=== PATIENT | male | born 1940 ===

== ENCOUNTER 2019-12-06 09:05 | Inpatient (IN) | payer MEDICARE, BC ==
--- OUTSIDE RECORDS SUMMARY | 2019-12-06 09:18 | XMS REPORT | Summary of Care ---
:1940 Author Organization [facility] Address [address] [address] Care Team Providers Name Role Phone KirstensaranyaRex Unavailable Justen Lawton OD Unavailable Diana Guzman Primary Care Provider Reason for Visit Reason Comments Follow Up Coronary Artery Disease Encounter Details Date Type Department Care Team Description 11/17/2019 Office Visit [facility] Juan Carnes, Coronary artery disease involving muck[place]oot coronary artery of [place] heart without angina pectoris (Primary Dx); 1 Jana Keith MD Aortic valve stenosis, etiology of cardiac valve disease unspecified; [place] [id number] 1 JANA KEITH Essential hypertension; [phone] [place] [address] TIA (transient ischemic attack); [phone] Dyslipidemia; S/P CABG (coronary artery bypass graft) Allergies Active Allergy Reactions Severity Noted Date Comments Xanax Other 07/26/2010 Caused hallucination, disoriented, and anxious Kdc:Sodium Unknown Reaction 12/16/2014 Benzoate+Cefuroxime+Aspa rtame Codeine Dermatologic Reaction 05/07/2018 Tetracycline Rash 02/21/2009 documented as of this encounter (statuses as of 11/17/2019) Medications Medication Sig Dispensed Refills Start Date End Date Status acetaminophen (TYLENOL) Take 1-2 Tabs by 0 06/26/2010 Active 500 MG Oral Tab mouth EVERY FOUR HOURS NEEDED. Fluticasone Take by 0 Active Furoate-Vilanterol (BREO inhalation. ELLIPTA) 200-25 MCG/INH Inhalation AEROSOL POWDER, BREATH ACTIVATED albuterol-ipratropium 3 mg by 0 Active (DUO-NEB) 0.5-2.5 (3) Inhalation-SVN MG/3ML Inhalation route EVERY FOUR Solution HOURS NEEDED. Tamsulosin HCl (FLOMAX) Take 0.4 mg by 0 Active 0.4 MG Oral Cap mouth DAILY. Ascorbic Acid (VITAMIN Take 1 Tab by 180 Tab 0 03/11/2018 Active C) 100 MG Oral Chew Tab mouth NEEDED (with iron pill). atorvastatin (LIPITOR) Take 1 Tab by 90 Tab 3 05/05/2019 Active 80 MG Oral mouth DAILY. TabIndications: History of coronary artery bypass graft x 3, History of stroke, Hyperlipidemia, unspecified hyperlipidemia type Mirabegron ER Take by mouth. 0 Active (MYRBETRIQ) 50 MG Oral TABLET SR 24 HR ROPINIROLE HYDROCHLORIDE Take 1 Tab by 90 Tab 1 06/12/2019 Active 3 MG Oral mouth EVERY TabIndications: RLS BEDTIME. (restless legs syndrome) Clopidogrel Bisulfate Take by mouth. 0 Active (PLAVIX PO) diclofenac (VOLTAREN) 1 2 g by Topical 1 Tube 3 06/12/2019 Active % Transdermal route THREE GelIndications: TIMES DAILY Localized osteoarthritis NEEDED (hand of both hands joint pains). allopurinol (ZYLOPRIM) TAKE 1 TABLET BY 90 Tab 0 07/20/2019 Active 100 MG Oral MOUTH ONCE DAILY TabIndications: Gout, unspecified cause, unspecified chronicity, unspecified site allopurinol (ZYLOPRIM) Take 1 Tab by 90 Tab 1 08/05/2019 Active 100 MG Oral mouth DAILY. TabIndications: Gout, unspecified cause, unspecified chronicity, unspecified site rivastigmine transdermal APPLY 1 PATCH TO 90 Patch 0 08/24/2019 Active patch-daily (EXELON) 4.6 SKIN ONCE DAILY. MG/24HR Transdermal PATCH 24 HRIndications: Dementia without behavioral disturbance, unspecified dementia type (HCC) pantoprazole (PROTONIX) Take 1 Tab by 90 Tab 0 10/05/2019 Active 40 MG Oral Tab EC mouth DAILY. amLODIPine Take 1 Tab by 90 Cap 1 10/22/2019 Active Besy-Benazepril HCl mouth DAILY. 10-20 MG Oral CapIndications: Hypertension, unspecified type documented as of this encounter (statuses as of 11/17/2019) Active Problems Problem Noted Date TIA (transient ischemic attack) 02/29/2016 Transient weakness of left lower extremity 02/29/2016 Hypertension 03/02/2015 Keratitis, right 03/02/2015 Central retinal artery occlusion, right eye 03/01/2015 H/O: gout 03/01/2015 S/P CABG (coronary artery bypass graft) 03/01/2015 MELANIE (obstructive sleep apnea) 02/01/2015 PLMD (periodic limb movement disorder) 02/01/2015 Cough 10/02/2011 Dyslipidemia 06/06/2011 Overview: Lab Results Lab Results Value Date/Time CHOL 144 02/06/2010 0745 TRIG 119 02/06/2010 0745 HDL 42 02/06/2010 0745 LDL 78 02/06/2010 0745 LDLHDLRATIO 1.9 02/06/2010 0745 CHOLHDLRATIO 3.4 02/06/2010 0745 Hiatal hernia 01/13/2010 Gastric erosions 01/13/2010 GERD (gastroesophageal reflux disease) 01/13/2010 CAD (coronary artery disease), [place] coronary artery 01/11/2010 Aortic Stenosis s/p AVR 200912/27/2009 Overview: 01/03/07 echocardiogram: FINAL IMPRESSION: Mild to moderate calcific aortic stenosis, KHADIJAH 1.3-1.6cm sq, PG 37mm of hg, MG 21mm of hg Trivail to mild aortic insufficiency Normal biventricular systolic function Mild left atrial enlargement Mitral annular calcification, trivial regurgitation Estimated pulmonary artery pressure 32mm of hg Normal pericardium Sensory hearing loss, bilateral 07/19/2009 Dysphagia 03/05/2006 Diaphragmatic hernia without mention of obstruction or gangrene 03/05/2006 Congenital tracheoesophageal fistula, esophageal atresia and stenosis 2005 Calcium deposits in tendon and bursa 05/31/2005 documented as of this encounter (statuses as of 11/17/2019) Resolved Problems Problem Noted Date Resolved Date Chest pain 12/27/2009 11/17/2019 Overview: 08/14/01 stress echocardiogram: IMPRESSION: Despite marked electrical positivity there were no wall motionabnormalities noted and there was a significant hypertensive response seen.Therefore, the test was negative by wall motion criteria. Non-healing surgical wound 07/25/2005 12/27/2009 Other general symptoms(780.99) 06/25/2005 12/27/2009 Pain in joint, upper arm 05/31/2005 12/27/2009 documented as of this encounter (statuses as of 11/17/2019) Immunizations Name Administration Dates Next Due Influenza Vaccine 65 Yrs + 07/20/2019 Influenza Vaccine High Dose 06/21/2017 documented as of this encounter Social History Tobacco Use Types Packs/Day Years Used Date Former Smoker Cigarettes 15 Quit: 10/21/1979 Smokeless Tobacco: Never Used Alcohol Use Drinks/Week oz/Week Comments No occ Sex Assigned at Date Recorded Not on file Job Start Date Occupation Industry Not on file Not on file Not on file Travel History Travel Start Travel End No recent travel history available. documented as of this encounter Last Filed Vital Signs Vital Sign Reading Time Taken Comments Blood Pressure 142/82 11/17/2019 10:28 AM EST Pulse 58 11/17/2019 10:28 AM EST Temperature - - Respiratory Rate - - Oxygen Saturation 95% 11/17/2019 10:28 AM EST Inhaled Oxygen Concentration - - Weight 94.8 kg (209 lb) 11/17/2019 10:28 AM EST Height 170.2 cm (5' 7") 11/17/2019 10:28 AM EST Body Mass Index 32.73 11/17/2019 10:28 AM EST documented in this encounter Progress Notes Juan Carnes MD - 11/17/2019 10:40 AM EST Alistair Holcomb [id number] 1940 DATE OF SERVICE: 11/17/2019 CHIEF COMPLAINT: follow up HPI: Alistair Holcomb is a 79-y.o. male with the following relevant PMH. #1 CAD status post CABG ESQUIVEL to LAD, SVG to diagonal and PDA by Dr. 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 Ophthalmology was consulted, who diagnosed a central retinal artery occlusion of the right eye, who advised eye drops. Neurology is consulted who advised CT angiography, which showed carotid stenosis. Vascular surgery was consulted who advised to continue Plavix, Asa and statin, out-pt follow-up. Cardiology is consulted, who advised out-pt follow-up. No afib was detected during hospitalization. Agreed that blindness was likely due to embolic carotid plaque" Today he is here for routine follow-up. No symptoms. He has been lifting weights in the gym. Denies any chest pain or significant shortness of breath on exertion. TTE done today showed no evidence of prosthetic valve stenosis. Normal LV function. Compliant with medications. REVIEW OF SYSTEMS: Constitutional: No fever, chills, weight loss Cardiovascular: No chest pain, SOB, palpitations, orthopnea, PND, claudication, leg swelling. Respiratory: No cough, hemoptysis. Gastrointestinal: No nausea, vomiting, abdominal pain, diarrhea, blood in stool , melena. Neurological: No dizziness, presyncope, syncope, speech difficulty. Patient Active Problem List Diagnosis Date Noted Central retinal artery occlusion, right eye 03/01/2015 Priority: High S/P CABG (coronary artery bypass graft) 03/01/2015 Priority: Medium MELANIE (obstructive sleep apnea) 02/01/2015 Priority: Medium Dyslipidemia 06/06/2011 Priority: Medium Lab Results Lab Results Value Date/Time CHOL 144 02/06/2010 0745 TRIG 119 02/06/2010 0745 HDL 42 02/06/2010 0745 LDL 78 02/06/2010 0745 LDLHDLRATIO 1.9 02/06/2010 0745 CHOLHDLRATIO 3.4 02/06/2010 0745 Aortic Stenosis s/p AVR 200912/27/2009 Priority: Medium 01/03/07 echocardiogram: FINAL IMPRESSION: Mild to moderate calcific aortic stenosis, KHADIJAH 1.3-1.6cm sq, PG 37mm of hg, MG 21mm of hg Trivail to mild aortic insufficiency Normal biventricular systolic function Mild left atrial enlargement Mitral annular calcification, trivial regurgitation Estimated pulmonary artery pressure 32mm of hg Normal pericardium H/O: gout 03/01/2015 Priority: Low PLMD (periodic limb movement disorder) 02/01/2015 Priority: Low GERD (gastroesophageal reflux disease) 01/13/2010 Priority: Low Sensory hearing loss, bilateral 07/19/2009 Priority: Low TIA (transient ischemic attack) 02/29/2016 Transient weakness of left lower extremity 02/29/2016 Hypertension 03/02/2015 Keratitis, right 03/02/2015 Cough 10/02/2011 Hiatal hernia 01/13/2010 Gastric erosions 01/13/2010 CAD (coronary artery disease), [place] coronary artery 01/11/2010 Chest pain 12/27/2009 08/14/01 stress echocardiogram: IMPRESSION: Despite marked electrical positivity there were no wall motionabnormalities noted and there was a significant hypertensive response seen.Therefore, the test was negative by wall motion criteria. Dysphagia 03/05/2006 Diaphragmatic hernia without mention of obstruction or gangrene 2005 Congenital tracheoesophageal fistula, esophageal atresia and stenosis Calcium deposits in tendon and bursa 05/31/2005 Past Surgical History: Procedure Laterality Date BALO ANGIOP ICRA PRQ COLONOSCOPY N/A 08/27/2017 Procedure: COLONOSCOPY; Surgeon: Martin Novak Jr., MD; Location: [facility] GI OR COLONOSCOPY DIAGNOSTIC COMBINED RIGHT HEART CATH & RET 3.18.10 ECHO, TRANS ESOPHOGEAL 06/21/2010 Procedure:ECHO, TRANS ESOPHOGEAL; Surgeon:NAIMA DIMAS; Location:[facility] MAIN OR ; Laterality:N/A; INTRA OP EGD (CORDOVA / NON CORDOVA) MI CABG, VEIN, SINGLE MI ESOPHAGOSCOPY FLEXIBLE TRANSORAL WITH BIOPSY MI TYMPANOPLASTY 2002 right tympanoplasty RETINA SURGERY Current Outpatient Medications Medication Sig acetaminophen (TYLENOL) 500 MG Oral Tab Take 1-2 Tabs by mouth EVERY FOUR HOURS NEEDED. albuterol-ipratropium (DUO-NEB) 0.5-2.5 (3) MG/3ML Inhalation Solution 3 mg by Inhalation-SVNroute EVERY FOUR HOURS NEEDED. allopurinol (ZYLOPRIM) 100 MG Oral Tab TAKE 1 TABLET BY MOUTH ONCE DAILY allopurinol (ZYLOPRIM) 100 MG Oral Tab Take 1 Tab by mouth DAILY. amLODIPine Besy-Benazepril HCl 10-20 MG Oral Cap Take 1 Tab by mouth DAILY. Ascorbic Acid (VITAMIN C) 100 MG Oral Chew Tab Take 1 Tab by mouth NEEDED (with iron pill). atorvastatin (LIPITOR) 80 MG Oral Tab Take 1 Tab by mouth DAILY. Clopidogrel Bisulfate (PLAVIX PO) Take by mouth. diclofenac (VOLTAREN) 1 % Transdermal Gel 2 g by Topical route THREE TIMES DAILY NEEDED (hand joint pains). Fluticasone Furoate-Vilanterol (BREO ELLIPTA) 200-25 MCG/INH Inhalation AEROSOL POWDER, BREATH ACTIVATED Take by inhalation. Mirabegron ER (MYRBETRIQ) 50 MG Oral TABLET SR 24 HR Take by mouth. pantoprazole (PROTONIX) 40 MG Oral Tab EC Take 1 Tab by mouth DAILY. rivastigmine transdermal patch-daily (EXELON) 4.6 MG/24HR Transdermal PATCH 24 HR APPLY 1 PATCH TO SKIN ONCE DAILY. ROPINIROLE HYDROCHLORIDE 3 MG Oral Tab Take 1 Tab by mouth EVERY BEDTIME. Tamsulosin HCl (FLOMAX) 0.4 MG Oral Cap Take 0.4 mg by mouth DAILY. No current facility-administered medications for this visit. Facility-Administered Medications Ordered in Other Visits Medication perflutren lipid microsphere (DEFIN[employer]) injection 1.5 mL Allergies Allergen Reactions Alprazolam [Xanax] Other Caused hallucination, disoriented, and anxious Cefuroxime Axetil [Kdc:Sodium Benzoate+Cefuroxime+Aspartame] Unknown Reaction Codeine Dermatologic Reaction Tetracycline Rash Social History Tobacco Use Smoking status: Former Smoker Years: 15.00 Types: Cigarettes Last attempt to quit: 10/21/1979 Years since quittin.1 Smokeless tobacco: Never Used Substance Use Topics Alcohol use: No Comment: occ Drug use: No Family History Problem Relation Age of Onset Heart Failure Mother Hypertension Mother Heart Failure Father Hypertension Father Alzheimer's Disease Sister No Known Problems Brother No Known Problems Sister No Known Problems Brother No Known Problems Son No Known Problems Son No Known Problems Son No Known Problems Daughter No Known Problems Daughter Alcohol/Drug Brother PHYSICAL EXAM BP (!) 142/82 (BP Location: Right arm, Patient Position: Sitting) | Pulse 58 | Ht 5' 7" (1.702 m)| Wt 209 lb (94.8 kg) | SpO2 95% | BMI 32.73 kg/m Nursing note and vitals reviewed. Constitutional: Patient is comfortable and is oriented to time, place and person.No distress. Skin: Warm and dry Neck: No JVD. Heart:: Normal S1 and S2. There is no S3 or S4. No audible murmurs (>/= Grade 3/6 intensity). Nopericardial rub. Peripheral Pulses: Radial: 2+ and equal bilaterally. Carotid pulse: 2+, Brisk upstroke. No Bruit Posterior tibial : 2+ b/l Chest: Normal Effort. Normal Vesicular breath sounds bilaterally. No crepitations Abdominal: Soft, non tender, non distended. No organomegaly. No guarding/ rigidity Extremities: Warm, no pedal edema. Neurological: Upper extremity: Motor strength is intact Lower extremity: Motor strength is intact Psychiatric: Affect normal. LABS Hemoglobin Date Value Ref Range Status 06/12/2019 13.8 13.7 - 17.5 g/dL Final INR Date Value Ref Range Status 03/03/2015 1.01 0.79 - 1.15 INR Final Troponin Date Value Ref Range Status 02/28/2016 0.023 0.000 - 0.034 ng/mL Final Comment: Negative less than or equal to 0.034 ng/ml Indeterminate 0.0351 - 0.119 ng/ml (Suggest Repeat in 4 Hours) Critical (AMI Cutoff) greater than or equal to 0.120 ng/ml LDL Cholesterol Date Value Ref Range Status 12/19/2018 77 <100 MG/DL Final HDL Cholesterol Date Value Ref Range Status 12/19/2018 37 (L) >40 mg/dl Final Cholesterol Date Value Ref Range Status 12/19/2018 132 <200 mg/dl Final Sodium Date Value Ref Range Status 06/12/2019 139 134 - 145 mmol/L Final Potassium Date Value Ref Range Status 06/12/2019 4.8 3.5 - 5.1 mmol/L Final BUN Date Value Ref Range Status 06/12/2019 26 (H) 9 - 20 mg/dl Final Creatinine Date Value Ref Range Status 06/12/2019 1.0 0.8 - 1.5 mg/dl Final ALT Date Value Ref Range Status 06/12/2019 27 21 - 72 U/L Final EC11/17/2019 sinus bradycardia, incomplete RBBB, T wave inversions in lateral leads, HR 54 bpm, nosignificant changes as compared to prior ECG dated 02/2019 ASSESSMENT/PLAN I have personally reviewed the relevant available prior notes, labs and imaging reports. #1 CAD status post CABG ESQUIVEL to LAD, SVG to diagonal and PDA by Dr. 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 Doing well. Asymptomatic. No clinical signs of acute heart failure. Today's TTE shows no evidenceof prosthetic aortic valve stenosis. Normal LV function. Plan to continue aggressive risk factor modification therapy with Plavix and statins #3 Carotid Artery Disease #4 History of TIA and central retinal artery occlusion Reviewed CT neck angiography performed in 2014 that showed 60 to 70% stenosis of the proximal right ICA, left ICA 50% stenotic Last carotid Dopplers in 2016 showed no significant stenosis No symptoms of amaurosis fugax, syncope or TIA Continue with aggressive risk factor modification #5 Hypertension Mildly elevated. Goal systolic BP less than 130 We will continue with current antihypertensive management. Advised to keep a close watch on his BP. If persistently elevated, antihypertensive medications needs to be adjusted #6 Dyslipidemia Lipid profile 12/19/2018, LDL 77, non-HDL 95 We will repeat lipid profile next visit We will consider adding ezetimibe 10 mg next visit if LDL remains above 70 mg/dL Follow up in 1 year The total time spent on this appointment and coordination of care was 30mins. Out of this time >20 mins were spent in discussing about various medical issues as mentioned above, including treatment options. All questions were answered. Patient verbalized understanding. Juan Carnes MD,FACC,FACP Associate Worm Picker Clinical Waiter/Waitress Counter of Cardiology, [facility], [place] ATTENTION: This note was generated using [employer] voice recognition software. There may be spelling errors, changes in the words dictated, and words inserted into the note which may have been misinterpreted by the dictation system. These words should not be used to change the intended meaning of the dictation. The content, context, words or meaning may not be entirely accurate and require interpretation documented in this encounter Plan of Treatment Date Type Specialty Care Team Description 11/17/2019 Orders Only Cardiology Arrived 11/19/2019 Office Visit Family Practice Laila Lundy MD [address] [place] [address] [phone] 08/16/2020 Ocular Visit Optometry Justen Lawton, OD [address] [facility] [place] [address] [phone] 11/17/2020 Office Visit Cardiology Juan Carnes MD [address] [address] [phone] Name Type Priority Associated Diagnoses Order Schedule BRIA (ANKLE-BRACHIAL Procedures Routine Coronary artery disease Ordered: INDEX) SCREENING involving muck[place]oot coronary artery of [place] heart without angina pectoris Health Maintenance Due Date Last Done Comments DTaP/Tdap/Td Vaccines (1 - 1951 Tdap) ZOSTER IMMUNIZATION SERIES 1990 (1 of 2) PNEUMOCOCCAL 65+YRS (1 of 2 2005 - PCV13) MEDICARE ANNUAL WELLNESS 12/25/2018 12/25/2017 VISIT HIV SCREENING 12/20/2019 Postponed from 1955 (Patient refused) DEPRESSION SCREENING 06/12/2020 06/12/2019 FALL RISK ASSESSMENT 06/12/2020 06/12/2019, 06/12/2019 Colonoscopy 08/27/2022 08/27/2017, 08/27/2017, 08/13/2016, Additional history exists INFLUENZA VACCINE Completed 07/20/2019, 06/21/2017 HEPATITIS A IMMUNIZATION Aged Out No longer eligible SERIES based on patient's age to complete this topic HPV IMMUNIZATION SERIES Aged Out No longer eligible based on patient's age to complete this topic MENINGOCOCCAL VACCINE IMM Aged Out No longer eligible based on patient's age to complete this topic documented as of this encounter Goals Goal Patient Goal Associated Recent Patient-Stated? Author Type Problems Progress Blood Pressure Blood Pressure 142/82 No Richardson Contreras < 150/90 (11/17/2019 J, DO 10:28 AM EST) Note: This is an individualized treatment (blood pressure) goal for Alistair Jaun Aicha: Displayed above (on the left) is your goal for blood pressure control. Your most recent blood pressure is also shown above, on the right. You should try to achieve blood pressures that are lower than your goal listed above (on the left). Weight loss vs. 18 mo Lifestyle 16 (11/17/2019 10:28 AM EST) No Richardson Contreras J, DO max (lbs) >= 10 Note: This is an individualized lifestyle goal for Alistair A Aicha: Your body mass index (BMI) is more than 30. You should lose weight. A reasonable starting goal is to lose 10 pounds. Displayed above is how many pounds you have lost thus far towards your 10 pound weight loss goal. Take all prescribed medications as directed Self-management Richardson Silvestre DO Note: This is an individualized self-management goal for Alistair Holcomb: Please take all prescribed medications as directed. 1. Do not skip doses. If you cannot afford your medications, talk with your doctor. 2. Use a pill reminder system such as a pill box if needed. Your pharmacist can help you with this. 3. Contact your Pharmacy 5 days before your medication runs out. If you cannot take your medications for any reasons, talk with your doctor. 4. Please bring all of your medication bottles and inhalers (or a list of all your medications/inhalers) with you to every visit. Potential barriers to meeting all of your care plan goals will continue to be addressed on an ongoing basis. documented as of this encounter Implants Implanted Type Area Air Traffic Control Operator Device Shelf Model / Identifier Expiration Date Serial / Lot Aortic Magna Ramone 25mm - [id number] Aorta [employer] [id number] / Implanted: Qty: 1 on 06/21/2010 at [facility] SCIENCES / [id number] documented as of this encounter Results Not on filedocumented in this encounter Visit Diagnoses Diagnosis Aortic valve stenosis, etiology of cardiac valve disease unspecified Coronary artery disease involving muck[place] coronary artery of [place] heart without angina pectoris Essential hypertension Unspecified essential hypertension TIA (transient ischemic attack) Unspecified transient cerebral ischemia Dyslipidemia Other and unspecified hyperlipidemia S/P CABG (coronary artery bypass graft) Postsurgical aortocoronary bypass status documented in this encounter Guarantor Name Account Type Relation to Date of Phone Billing Address Patient Alistair Holcomb Personal/Fami 1940 [id number] [place] [address] 0 (Work) documented as of this encounter Advance Directives Code Status Date Activated Date Inactivated Comments Full Code 02/29/2016 2:51 AM 03/01/2016 6:39 PM Does patient have decision making capacity? yes Order discussed with: Patient I discussed all options and patient/surrogate requested and agreed to: Full Code Full Code 03/01/2015 11:53 PM 03/04/2015 7:45 PM Does patient have decision making capacity? yes Order discussed with: Patient I discussed all options and patient/surrogate requested and agreed to: Other (full)
--- OUTSIDE RECORDS SUMMARY | 2019-12-06 09:18 | XMS REPORT | Summary of Care ---
:1940 Author Organization [facility] Address [address] [address] Care Team Providers Name Role Phone Isidra Guallpa Unavailable Justen Lawton OD Unavailable Diana Guzman Primary Care Provider Reason for Referral Diagnostic Testing (Routine) Status Reason Specialty Diagnoses / Referred By Referred To Contact Procedures Contact Closed Cardiology Diagnoses Aortic valve stenosis, etiology of cardiac valve disease unspecified Isidra Guallpa [facility] Cardiovascular Procedures ECHOCARDIOGRAM TTE CHAIR Diagnostic [address] [address] [address] [address] Phone: Reason for Visit Diagnostic Testing (Routine) Status Reason Specialty Diagnoses / Referred By Referred To Contact Procedures Contact Closed Cardiology Diagnoses Aortic valve stenosis, etiology of cardiac valve disease unspecified Isidra Guallpa [facility] Cardiovascular Procedures ECHOCARDIOGRAM TTE CHAIR Diagnostic [address] [address] [address] [address] Phone: Encounter Details Date Type Department Care Team Description 11/17/2019 Hospital Encounter [facility] CARDIOVASCULAR DIAGNOSTIC Outpatient [address] [address] Allergies Active Allergy Reactions Severity Noted Date Comments Xanax Other 07/26/2010 Caused hallucination, disoriented, and anxious Kdc:Sodium Unknown Reaction 12/16/2014 Benzoate+Cefuroxime+Aspa rtame Codeine Dermatologic Reaction 05/07/2018 Tetracycline Rash 02/21/2009 documented as of this encounter (statuses as of 11/19/2019) Medications Medication Sig Dispensed Refills Start Date End Date Status acetaminophen Take 1-2 0 06/26/2010 Active (TYLENOL) 500 MG Tabs by Oral Tab mouth EVERY FOUR HOURS NEEDED. Fluticasone Take by 0 Active Furoate-Vilanterol inhalation. (BREO ELLIPTA) 200-25 MCG/INH Inhalation AEROSOL POWDER, BREATH ACTIVATED albuterol-ipratropi 3 mg by 0 Active um (DUO-NEB) Inhalation-S 0.5-2.5 (3) MG/3ML VN route Inhalation Solution EVERY FOUR HOURS NEEDED. Tamsulosin HCl Take 0.4 mg 0 Active (FLOMAX) 0.4 MG by mouth Oral Cap DAILY. Ascorbic Acid Take 1 Tab 180 Tab 0 03/11/2018 Active (VITAMIN C) 100 MG by mouth Oral Chew Tab NEEDED (with iron pill). atorvastatin Take 1 Tab 90 Tab 3 05/05/2019 Active (LIPITOR) 80 MG by mouth Oral DAILY. TabIndications: History of coronary artery bypass graft x 3, History of stroke, Hyperlipidemia, unspecified hyperlipidemia type Mirabegron ER Take by 0 Active (MYRBETRIQ) 50 MG mouth. Oral TABLET SR 24 HR ROPINIROLE Take 1 Tab 90 Tab 1 06/12/2019 Active HYDROCHLORIDE 3 MG by mouth Oral EVERY TabIndications: RLS BEDTIME. (restless legs syndrome) Clopidogrel Take by 0 Active Bisulfate (PLAVIX mouth. 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 allopurinol Take 1 Tab 90 Tab 1 08/05/2019 Active (ZYLOPRIM) 100 MG by mouth Oral DAILY. TabIndications: Gout, unspecified cause, unspecified chronicity, unspecified site rivastigmine APPLY 1 90 Patch 0 08/24/2019 Active transdermal PATCH TO patch-daily SKIN ONCE (EXELON) 4.6 DAILY. MG/24HR Transdermal PATCH 24 HRIndications: Dementia without behavioral disturbance, unspecified dementia type (HCC) amLODIPine Take 1 Tab 90 Cap 1 10/22/2019 Active Besy-Benazepril HCl by mouth 10-20 MG Oral DAILY. CapIndications: Hypertension, unspecified type allopurinol TAKE 1 90 Tab 0 07/20/2019 Discontinued (ZYLOPRIM) 100 MG TABLET BY 0 (Reorder) Oral MOUTH ONCE TabIndications: DAILY Gout, unspecified cause, unspecified chronicity, unspecified site pantoprazole Take 1 Tab 90 Tab 0 10/05/2019 Discontinued (PROTONIX) 40 MG by mouth 0 (Reorder) Oral Tab EC DAILY. documented as of this encounter (statuses as of 11/19/2019) Active Problems Problem Noted Date TIA (transient [...] reflux disease) 01/13/2010 CAD (coronary artery disease), [place] coronary artery 01/11/2010 Aortic Stenosis s/p AVR [...] as of this encounter (statuses as of 11/19/2019) Resolved Problems Problem Noted Date Resolved Date [...] as of this encounter (statuses as of 11/19/2019) Immunizations Name Administration Dates Next Due Influenza [...] of this encounter Last Filed Vital Signs Not on filedocumented in this encounter Plan of Treatment Date Type Specialty Care Team Description 12/08/2019 Office Visit Family Practice Laila Lundy MD [address] [place] [address] [phone] 08/16/2020 Ocular Visit Optometry Justen Lawton, OD [address] [address] 11/17/2020 Office Visit Cardiology Juan Carnes MD [address] [address] Health Maintenance Due Date Last Done Comments [...] 142/82 No Richardson Contreras < 150/90 (11/17/2019 DO Kristyn 10:28 AM EST) Note: This is an individualized treatment (blood pressure) goal for Alistair Holcomb: Displayed above (on the left) is your goal for blood pressure control. Your most recent blood pressure is also shown above, on the right. You should try to achieve blood pressures that are lower than your goal listed above (on the left). Weight loss vs. 18 mo Lifestyle 16 (11/17/2019 10:28 AM EST) Richardson Silvestre DO max (lbs) >= 10 Note: This is an individualized lifestyle goal for Alistair Holcomb: Your body mass index (BMI) is more [...] of this encounter Implants Implanted Type Area Planning Coordinator Device Shelf Model / Identifier Expiration Date Serial / Lot Aortic Magna Ramone 25mm - [id number] Aorta RAMIREZ LIFE [id number] / Implanted: Qty: 1 on 06/21/2010 at [facility] [employer] / [id number] documented as of this encounter Procedures Procedure Name Priority Date/Time Associated Diagnosis Comments ECHOCARDIOGRAM TTE Routine 11/17/2019 9:17 AM Aortic valve Results for this EST stenosis, etiology procedure are in of cardiac valve the results disease unspecified section. documented in this encounter Results ECHOCARDIOGRAM TTE (11/17/2019 9:17 AM EST) ECHOCARDIOGRAM TTE ECHOCARDIOGRAPHY REPORT CARDIOLOGY DEPARTMENT Patient Name: TOMÁS Zamorano Status: Outpatient MR Number: [id number] Gender: Male : 1940 Location: [place] Age:79 year(s) Exam Date: 11/17/2019 09:17 AM Height: 68 inches Weight: 224 pounds Study Performed: 2D echocardiogram, M-Mode, Doppler , Color Doppler, Contrast study, ECHOCARDIOGRAM TTE. Ordering ISIDRA GUALLPA Provider: KAYA BRUNSON Provider: SANDIP KIRKPATRICK Manager Data Warehousing: Trish Limon [facility] Room Number Interpreting Yayo Physician Jacky GUTIERREZ BSA: 2.14 m^2 Interpreting BMI: 34.06 kg/m^2 Fellow Nurse CHICO WATTERS RN, CCRN Technical Quality: Adequate visualization Contrast Medium: Definity. Amount - 1.5 ml Heart Rate (HR): 62bpm Blood Pressure (BP): 120/60mmHg INDICATION FOR STUDY: Aortic valve replacement, S/P CABG, Hypertension and Hyperlipidemia. HISTORY: 1.5cc's of Definity administered via IV with no waste on 11/17/2019 at 09:45 am (Lot # [id number] ) ([facility] # [id number]). AVR & CABG 11 yrs ago FINAL IMPRESSION: Mild-moderate LVH with Grade II diastolic dysfunction and mild left atrial enlargement. High normal LV systolic function with no regional wall motion abnormalities; estimated LVEF 65-70%. Mild right heart enlargement with normal RV contractility. Normally functioning bioprosthetic aortic valve, as described. Mild-moderate tricuspid regurgitation. Mild elevation in estimated pulmonary arterial systolic pressure (44 mmHg). No pericardial effusion. Compared to prior echo report 02/29/2016, tricuspid regurgitation is slightly worse, diastolic dysfunction is reported, and estimated PASP is mildly elevated. OBSERVATIONS & FINDINGS: Using 2d (3d if applicable), M-mode, Colorflow, Continuous wave doppler and Pulse wave doppler interrogation Left Ventricle Left ventricular cavity size is normal. Left ventricular wall thickness is moderately increased. No evidence of LVOT obstruction. Definity imaging enhancer was used because at least two contiguous endocardial borders were not well defined. Global systolic function is high normal, with an estimated LVEF of 65-70%. No regional wall motion abnormalities. Diastolic doppler profile is consistent with impaired LV relaxation and elevated LA pressure (moderate grade II diastolic dysfunction). Average E/e' 25. Left Atrium The left atrium is mildly enlarged. Indexed LA volume is 36 ml/m2. Mitral Valve Mitral valve leaflets are mildly thickened and calcified with normal mobility. There is moderate to severe posterior mitral annular calcification. The peak and mean transmitral gradients are 8 mmHg and 4mmHg, respectively, at a heart rate of 56 bpm. There is no significant mitral stenosis. There is mild mitral regurgitation. Aortic Valve A #25 Ramone-Ramirez Magna bioprosthetic valve is noted in the aortic position. The prosthesis is well seated, with no rocking motion and no dehiscence. Prosthetic leaflets are not well visualized. The mean and peak gradients across the aortic valve are 11 mmHg and 21 mmHg, respectively. The effective orifice area by continuity equation is 2.9cm2. The acceleration time is 70msec. There is trivial aortic regurgitation. Right Ventricle The right ventricle is mildly enlarged with reduced contractility. Right Atrium The right atrium is mildly enlarged. Tricuspid Valve Tricuspid valve appears structurally normal with flexible leaflets. There is mild-moderate tricuspid regurgitation. The estimated pulmonary artery systolic pressure is mildly elevated at 44 mmHg. Pulmonic Valve Pulmonic valve is not well visualized but appears flexible with normal Doppler. Pericardium / Pleura No pericardial effusion. Miscellaneous Visualized portions of the aorta are within normal limits. Measurements & Calculations: M-Mode / 2D Measurements Value Normal Value Normal LVIDd: 4.9 cm 3.5-5.5 AO Root: 2.5 cm 2.0-3.7 0.7-1.1 LA Dimension: cm 1.9-4.0 IVSd: 1.46 cm 0.7-1.1 LVOT: 2.3 cm 1.5-2.5 LVPWD: 1.4 cm 50-70% RV Diastolic Dimension: 4.1 cm EF Estimated: 65 % Doppler Measurements & Calculations: Mitral: Aortic: Area (PHT): 2.24 cm^2 LVOT VTI: 37.7 cm Peak E-Wave: 138 cm/s Peak Velocity: 230 cm/s Peak A-Wave: 133 cm/s Peak Gradient: 21.16 mmHg Peak Gradient: 7.62 mmHg Acceleration Time: 70 msec P1/2t: 98 msec Area (continuity): 2.92 cm^2 Area (continuity): 2.52 cm^2 Mean Velocity: 150 cm/s Mean Velocity: 85.5 cm/s Mean Gradient: 11 mmHg Mean Gradient: 4 mmHg AV VTI: 53.7 cm Deceleration Time: 303 msec E/A Ratio: 1.04 Tricuspid: Pulmonic: RVSP:44 mmHg Peak Velocity: 119 cm/s Peak TR Velocity:300 cm/s Peak Gradient: 5.66 mmHg TR Gradient:36 mmHg TR Velocity: 300 cm/s TR Gradient: 36 mmHg Estimated PASP: 44 mmHg Estimated RAP: 8 mmHg Estimated RVSP: 44 mmHg Left Atrium: Right Atrium: LA Dimension: 5.4 cm RA dimension:3.6 cm LA/Aorta: 2.16 RA area:22.5 cm^2 LA Area: 26.5 cm^2 LA Volume/Index: 78 ml /36m^2 Left Ventricle: Right Ventricle: Diastolic Dimension: 4.9 cm Septum Diastolic: 1.46 cm PW Diastolic: 1.4 cm [place] dimension:4.1 cm CO: 9.71 l/min RV sys pressure:44 mmHg LVOT LVOT Diameter: 2.3 cm Peak Velocity: 130 cm/s Peak Gradient: 8 mmHg LVOT Diameter: 2.3 cm EF Estimated: 65% Mean Velocity: 90 cm/s CI: 4.54 l/min*m^2 Mean Gradient: 5 mmHg LVOT VTI: 37.7 cm Aorta Aortic Root: 2.5 cm Ascending Aorta: 2.3 cm LVOT Diameter: 2.3 cm Pulmonary Vein: S Velocity: 54.7 cm/s D Velocity: 47.6 cm/s A Reversal Velocity: 36.2 cm/s A Reversal Duration: 123 msec Signature Ejection Fraction 65 % CARDIOLOGY DEPARTMENT AV AREA 2.92 cm2 CARDIOLOGY DEPARTMENT RVSP 44 mmHg CARDIOLOGY DEPARTMENT LA Volume 78 ml CARDIOLOGY DEPARTMENT LVEDd 4.9 cm CARDIOLOGY DEPARTMENT LVESd cm CARDIOLOGY DEPARTMENT IVSd 1.46 cm CARDIOLOGY DEPARTMENT LVPWd 1.4 cm CARDIOLOGY DEPARTMENT ESV ml CARDIOLOGY DEPARTMENT EDV ml CARDIOLOGY DEPARTMENT AV Mean Gradient 11 mmHg CARDIOLOGY DEPARTMENT Specimen Performing Organization Address City/State/Zipcode Phone Number CARDIOLOGY DEPARTMENT documented in this encounter Visit Diagnoses Diagnosis Aortic valve stenosis, etiology of cardiac valve disease unspecified documented in this encounter Administered Medications Medication Order MAR Action Action Date Dose Rate Site perflutren lipid microsphere Push 11/17/2019 9:47 AM EST 1.5 mL (DEFINITY) injection 1.5 mL 1.5 mL, Intravenous Push, PRN, Starting Sat11/17/19 at 0946, Until Sat11/18/19 at 0611, Poor visualization (see Admin Instructions for details) up to a max dose of 10 mL, The Manager Data Warehousing will determine if Definity needs to be administered based on the following criteria: 1. Patient has two or more wall segments which cannot be visualized in one or more views 2. Patient is technically difficult to image and is being evaluated for: a. LV function b. Known apical thrombus and/or cardiac tumors c. Suspected myocardial rupture or pseudoaneurysm 3. Patient receiving exercise or pharmacologic stress echocardiogram studies If Definity is needed, the nurse will prepare, administer and document the administration on the eMAR. Definity is provided by the picker/puller and is to be prepared by the nurse as follows: 1. Activate perflutren lipid microsphere (DEFINITY) by shaking the vial for 45 seconds using a Vialmix 2. Draw up the contents of the vial into a 10 mL syringe and add 8.5 mL of Sodium Chloride 0.9% for a total volume of 10 mL 3. Administer 0.5 mL IV push 4. Flush the line with 3 mL Sodium Chloride 0.9% over 10 seconds to clear the tubing 5. Manager Data Warehousing will monitor the visualization of images 6. If images are still not optimal, repeat steps 3 & 4 as needed until images are optimal OR a total of 10 mL of Definity has been administered. , documented in this encounter Insurance Payer Benefit Plan / Subscriber ID Effective Dates Phone Address Type Group MEDICARE MEDICARE PART A xxxxxxxxxxx 2005-Present Medicare & B BCBS EMPIRE BCBS EMPIRE PPO xxxxxxxxxxxx 2018-Present Blue Cross/Blue Shield Guarantor Name Account Type Relation to Date of Phone Billing Address Patient Alistair Holcomb Personal/Fami 1940 [id number] [place] [address] 0 (Work) documented as of this encounter [...]
[2019-12-06 09:57] LABS: ABS Basophils 0.1 10^3/ul (0-0.2); ABS Eosinophils 0.2 10^3/ul (0-0.6); ABS Lymphocytes 0.7 10^3/ul (1.0-4.8); ABS Monocytes 0.6 10^3/ul (0-0.8); ABS Neutrophils 3.7 10^3/ul (1.5-7.7); Eosinophil % 3.5 %; Hematocrit 37 % (42-52); Hemoglobin 12.6 g/dL (14.0-18.0); Lymphocyte % 14.2 %; Mean Corpuscular HGB Conc 34 g/dL (31-36); Mean Corpuscular Hemoglobin 32 pg (27-31); Mean Corpuscular Volume 94 fL (80-94); Mean Platelet Volume 6.9 fL (7.4-10.4); Platelet Count 165 10^3/uL (150-450); Red Blood Count 3.96 10^6 /uL (4.18-5.48); Red Cell Distribution Width 15 % (10-15); White Blood Count 5.2 10^3/uL (3.5-10.8)
[2019-12-06 10:09] LABS: Albumin 3.5 g/dL (3.2-5.2); Calcium 8.6 mg/dL (8.6-10.3); Magnesium 1.9 mg/dL (1.9-2.7); Potassium 3.3 mmol/L (3.5-5.0); Total Bilirubin 0.6 mg/dL (0.2-1.0)
[2019-12-06 10:15] LABS: Albumin/Globulin Ratio 1.6 (1-3); BUN/Creatinine Ratio 17.2 (8-20); EGFR African American 94.8 (>60); EGFR Non-African American 78.4 (>60); Globulin 2.2 g/dL (2-4); Total Protein 5.7 g/dL (6.4-8.9)
[2019-12-06 10:16] LABS: Troponin I 0.01 ng/mL (<0.03)
--- NOTE | 2019-12-06 10:47 | ED ---
Complex/Multi-Sys Presentation - HPI Summary HPI Summary: Patient is a 79 y/o M [facility] accompanied by , Isabelle, with complaints of BLE edema, LAUREANO, and elevated BP. states that swelling was first noted by her 3-4 days ago. However, she notes that the patient had stated that his shoes were feeling tight beforehand. notes that the swelling appears to be worse towards the evening. No CP, no exertional SOB, no SOB while sleeping reported. Patient states that he sleeps on one pillow. However, notes that the patient has Hx of sleep apnea. The patient had not been using his sleep apnea machine for the past few months but started wearing it again two days ago. LAUREANO is reported to have been constant for the past 1.5 weeks and is located at the frontal left aspect of his head. Hx of right-eye stroke in 2014 noted. He states palpation alleviates his LAUREANO pain. Pain does not increase with palpation of spiritism area. states that the patient is chronically fatigued but this has increase recently - She notes that the patient has been gaining weight recently, with the patient having stated that his pants felt tight a week ago. Some cough is noted as well but this is attributed to the patient having a cold. Nausea, abdominal pain, changes in PO intake, abdominal swelling, and changes in urination are denied. On initial vitals, BP is 191/94, in room BP is 180s/60s. Patient took his amlodipine at 0330 this morning, . He states that he awakens frequently in the evening and will sometimes take his medications during these times. 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 Patient had a cardioechogram and EKG done by his live in caregiver done through [facility] a few weeks ago, states that they were told that everything was "fine". Patient is in the process of getting a new PCP. He was evaluated at [facility] earlier today and was sent to ED for further workup. Home medications and allergies are reviewed. No history of CHF - no diuretic - pt care usually through [facility] system - History Of Current Complaint Chief Complaint: EDExtremityLower Time Seen by Provider: 12/06/19 09:41 Hx Obtained From: Patient, Family/Press Hand Supervisor - Onset/Duration: Lasting Days, Still Present Timing: Constant, Days Location: Pain At: - frontal left head Character: Typical Headache Alleviating Factor(s): palpation alleviates LAUREANO Associated Signs And Symptoms: Positive: Headache, Cough - attributed to cold, Edema - BLE, Other - positive - elevated BP, chronic fatigue, weight gain; negative - changes in PO intake, abdominal swelling, and changes in urination. Negative: SOB, Chest Pain, Nausea, Abdominal Pain - Allergies/Home Medications Allergies/Adverse Reactions: Allergies Allergy/AdvReac Type Severity Reaction Status Date / Time alprazolam [From Xanax] Allergy Anxiety Verified 12/06/19 09:12 cefuroxime Allergy Unknown Verified 12/06/19 09:12 Reaction Details tetracycline Allergy Rash Verified 12/06/19 09:12 codine Allergy Itching Uncoded 12/06/19 09:12 Home Medications: Home Medications Rivastigmine Tartrate [Rivastigmine] 4.5 mg PO DAILY 12/06/19 [History Confirmed 12/06/19] PMH/Surg Hx/FS Hx/Imm Hx Previously Healthy: No Endocrine/Hematology History: Reports: Hx Anticoagulant Therapy - plavix Denies: Hx Diabetes Cardiovascular History: Reports: Hx Hypertension - ON MEDS Denies: Hx Pacemaker/ICD Respiratory History: Denies: Hx Asthma GI History: Reports: Hx Ulcer - gerd History: Denies: Hx Renal Disease Sensory History: Reports: Hx Hearing Aid - BILAT Neurological History: Reports: Other Neuro Impairments/Disorders - 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 BOVINE AORTIC VALVE REPLACEMENT;. LEFT CARPAL TUNNEL; - Immunization History Date of Influenza Vaccine: 11/21/2019 Infectious Disease History: No Infectious Disease History: Reports: Hx Shingles Denies: History Other Infectious Disease, Traveled Outside the [place] in Last 30 Days - Family History Known Family History: Negative: Cardiac Disease, Hypertension, Diabetes - Social History Alcohol Use: None Substance Use Type: Reports: None Smoking Status (MU): Never Smoked Tobacco Review of Systems Constitutional: Other - positive - recent weight gain Positive: Fatigue - chronic Cardiovascular: Other - positive - elevated BP Negative: Chest Pain Positive: Cough - attributed to cold . Negative: Shortness Of Breath Gastrointestinal: Other - negative - changes in PO intake, abdominal swelling Negative: Abdominal Pain, Nausea Positive: no symptoms reported - no urinary Sx noted Positive: Edema - BLE Positive: Headache All Other Systems Reviewed And Are Negative: Yes Physical Exam - Summary Physical Exam Summary: Vital Signs Reviewed: Yes A+Ox3, no distress, tired appearing, no increased WOB Eyes: Conjunctiva Clear, YENI. EOM intact and full baseline decreased vision right eye related to previous CVA ENT: Hearing grossly normal TM x 2 clear, turbinates inflammed and boggy, mmoist, uvula midline, no exudate, no erythema Neck: Positive: Supple Respiratory: Positive: No respiratory distress, No accessory muscle use + CTA throughout no w/r 1+ edema b/l LE no temporal pain with palpation Cardiovascular: RRR nl s1, s2 no m/r CBT <2 sec abd soft + BS nt/nd no guarding, no distension Musculoskeletal Exam: ABDULLAHI x 4 without difficulty Strength Intact, ROM Intact Neurological: Positive: Alert, + sensation throughout Psychological: Positive: Normal Response To examiner Skin: Positive: no rash, no ecchymosis Triage Information Reviewed: Yes Vital Signs On Initial Exam: Initial Vitals Temp Pulse Resp BP Pulse Ox 98.0 F 67 19 191/94 94 12/06/19 09:08 12/06/19 09:08 12/06/19 09:08 12/06/19 09:08 12/06/19 09:08 Procedures - Sedation Patient Received Moderate/Deep Sedation with Procedure: No Diagnostics - Vital Signs Vital Signs Temp Pulse Resp BP Pulse Ox 12/06/19 10:21 70 25 188/91 91 12/06/19 10:15 65 14 182/85 95 12/06/19 10:00 62 16 96 12/06/19 09:51 62 15 181/85 94 12/06/19 09:18 20 12/06/19 09:08 98.0 F 67 19 191/94 94 - Laboratory Lab Results: Lab Results 12/06/19 12/06/19 12/06/19 Range/Units 09:48 09:48 09:48 WBC 5.2 (3.5-10.8) 10^3/uL RBC 3.96 L (4.18-5.48) 10^6 /uL Hgb 12.6 L (14.0-18.0) g/dL Hct 37 L (42-52) % MCV 94 (80-94) fL MCH 32 H (27-31) pg MCHC 34 (31-36) g/dL RDW 15 (10-15) % Plt Count 165 (150-450) 10^3/uL MPV 6.9 L (7.4-10.4) fL Neut % (Auto) 70.3 % Lymph % (Auto) 14.2 % Gila % (Auto) 10.8 % Eos % (Auto) 3.5 % Baso % (Auto) 1.2 % Absolute Neuts (auto) 3.7 (1.5-7.7) 10^3/ul Absolute Lymphs (auto) 0.7 L (1.0-4.8) 10^3/ul Absolute Monos (auto) 0.6 (0-0.8) 10^3/ul Absolute Eos (auto) 0.2 (0-0.6) 10^3/ul Absolute Basos (auto) 0.1 (0-0.2) 10^3/ul Absolute Nucleated RBC 0.0 10^3/ul Nucleated RBC % 0.0 Sodium 141 (135-145) mmol/L Potassium 3.3 L (3.5-5.0) mmol/L Chloride 106 (101-111) mmol/L Carbon Dioxide 32 (22-32) mmol/L Anion Gap 3 (2-11) mmol/L BUN 16 (6-24) mg/dL Creatinine 0.93 (0.67-1.17) mg/dL Est GFR ( Amer) 94.8 (>60) Est GFR (Non-Af Amer) 78.4 (>60) BUN/Creatinine Ratio 17.2 (8-20) Glucose 98 (70-100) mg/dL Calcium 8.6 (8.6-10.3) mg/dL Magnesium 1.9 (1.9-2.7) mg/dL Total Bilirubin 0.60 (0.2-1.0) mg/dL AST 16 (13-39) U/L ALT 19 (7-52) U/L Alkaline Phosphatase 85 (34-104) U/L Troponin I 0.01 (<0.03) ng/mL B-Natriuretic Peptide 201 H (<=100) pg/mL Total Protein 5.7 L (6.4-8.9) g/dL Albumin 3.5 (3.2-5.2) g/dL Globulin 2.2 (2-4) g/dL Albumin/Globulin Ratio 1.6 (1-3) Result Diagrams: 12/06/19 09:48 12/06/19 09:48 Lab Statement: Any lab studies that have been ordered have been reviewed, and results considered in the medical decision making process. - Radiology CXR Radiology Interpretation Completed By: Radiologist Summary of Radiographic Findings: IMPRESSION: Interstitial edema with no evidence of alveolar consolidation. THIS REPORT WAS REVIEWED BY ED PHYSICIAN. - CT BRAIN CT CT Interpretation Completed By: Radiologist Summary of CT Findings: IMPRESSION: Old infarct right frontal lobe. No intracranial mass or hemorrhage is noted. THIS REPORT WAS REVIEWED BY ED PHYSICIAN. - EKG 1009 Cardiac Rate: NL - rate of 60 BPM EKG Rhythm: Sinus Rhythm Summary of EKG Findings: EKG showed NSR with rate of 60 BPM, inverted T waves in V4-V6, lead I, and aVL. QTc is 461. EKG was reviewed and interpreted by ED physician. Re-Evaluation - Re-Evaluation First Eval Re-Evaluation Time: 12:12 Comment: Results of workup were discussed with the patient. Will give hydralazine for BP. d/w Dr. Waite - anticipate admission. Patient is agreeable with admission. Complex Multi-Symp Course/Dx Course Of Treatment: Patient presents to the emergency department reporting 3-4 days of increased progressive leg edema. Patient has increased fatigue. Patient denies shortness of breath or chest pain. Patient does have a history of a valve replaced as well as a three-vessel CABG. On exam vital signs show an elevated blood pressure decreased oxygen level. Patient was motion with good effect. No temporal artery pain. Patient's lungs are clear. Concern for CHF, hypertension. Will check CT, labs, urine, chest x-ray. We'll do Tylenol. His head CT does not show any acute process with a loop of hydralazine for blood pressure. Anticipate patient will have to be admitted as there is EKG changes with no old to compare to. and patient comfortable the plan. We' ll follow-up follow results of labs. - Diagnoses Provider Diagnoses: Edema, Hypertensive urgency, Nonspecific ST-T wave electrocardiographic changes - Physician Notifications Discussed Care Of Patient With: Malinda Waite Time Discussed With Above Provider: 12:00 Instructed by Provider To: Other - Patient's case was discussed with Dr. Waite , will await brain CT; if unconcerning, Dr. Waite will admit. Discharge ED - Sign-Out/Discharge Documenting (check all that apply): Patient Departure - Discharge Plan Condition: Fair Disposition: ADMITTED TO [facility] Referrals: Laila Lundy MD [Primary Care Provider] - - Billing Disposition and Condition Condition: FAIR Disposition: Admitted to [facility] - Attestation Statements Document Initiated by Scribe: Yes Documenting Scribe: AURELIA MADRID Provider For Whom Salvadoribjake is Documenting (Include Credential): GISELA SIGALA MD Scribe Attestation: AURELIA Pascual, scribed for GISELA SIGALA MD on 12/06/19 at 1249. Scribe Documentation Reviewed: Yes Provider Attestation: The documentation as recorded by the AURELIA haro accurately reflects the service I personally performed and the decisions made by , GISELA SIGALA MD Status of Scribe Document: Viewed
[2019-12-06] MEDS ORDERED: Acetaminophen TAB* 325 MG PO ONE (11:43)
[2019-12-06] MEDS ORDERED: hydrALAZINE IV* 20 MG/ML VIAL IV SLOW PU ONE (12:11)
[2019-12-06 12:23] LABS: Urine Appearance Clear; Urine Bilirubin Negative (Negative); Urine Blood Negative (Negative); Urine Color Straw; Urine Glucose Negative (Negative); Urine Ketones Negative (Negative); Urine Nitrite Negative (Negative); Urine Protein 1+(30 mg/dL) (Negative); Urine Specific Gravity 1.005 (1.010-1.030); Urine Urobilinogen Negative (Negative)
[2019-12-06 12:26] LABS: Urine Bacteria Absent (Absent); Urine Red Blood Cell Absent (Absent); Urine White Blood Cell Absent (Absent)
[2019-12-06] MEDS ORDERED: Lisinopril TAB* 10 MG PO ONE (13:26)
[2019-12-06] MEDS ORDERED: hydrALAZINE IV* 20 MG/ML VIAL IV SLOW PU PRN (13:27)
[2019-12-06] MEDS ORDERED: Potassium Chloride* LIQUID 20 MEQ/15 ML UDC PO ONE (14:50)
[2019-12-06] MEDS: Furosemide IV* 10 MG/ML VIAL (40 MG) IV SLOW PU SCH (16:21)
[2019-12-06] MEDS: Enoxaparin(*) 40 MG/0.4 ML SYR SUBCUT SCH (16:22)
--- NOTE | 2019-12-06 18:09 | HP ---
CC: Dr. Lundy * ADMISSION HISTORY AND PHYSICAL: DATE OF ADMISSION: 12/06/19 PRIMARY CARE PROVIDER: Dr. Lundy. MY ATTENDING WHILE IN THE HOSPITAL: Dr. Malinda Waite.* (DICTATED BY EDELMIRA MART) CHIEF COMPLAINT: Lower extremity swelling x4 days. HISTORY OF PRESENT ILLNESS: Mr. Holcomb is a 79-year-old male with past medical history significant for hypertension; hyperlipidemia; history of CVA; obstructive sleep apnea, generally noncompliant with CPAP; and asthma, who presents to the emergency department after 4 days of worsening lower extremity edema which is a new finding for him, without associated symptoms. The patient identified no recent changes in his diet or his medications, though he has not been compliant with a low- salt diet despite it is being recommended for him to have done so. The patient has no history of heart failure, but did have a recent echocardiogram through [place], which he was told was normal with no further elucidation. The patient does have an aortic valve replacement that was bovine and was placed in 2009. The patient has not been wearing his CPAP up until 2 days ago when he began wearing it due to concern for his lower extremity edema. The patient denies chest pain, shortness of breath, nausea, vomiting, fevers, chills, sick contacts, abdominal pain, or diarrhea. The patient states that his lower extremity swelling is better today than it was yesterday. In the emergency department, the patient was found to be mildly hypoxic requiring oxygen, with chest x-ray with possible pulmonary edema and the patient was found also to be markedly hypertensive. The patient has not generally checked his blood pressure at home, though he states it is generally under good control with his amlodipine and benazepril. The patient is not on a diuretic. Due to concern for likely new-onset heart failure and hypertensive urgency, we were asked to evaluate the patient for admission to the hospital. PAST MEDICAL HISTORY: CVA in 2014; obstructive sleep apnea; hypertension; hyperlipidemia; GERD; coronary artery disease; restless legs syndrome; asthma; prostate cancer, status post radiation. PAST SURGICAL HISTORY: CABG x3 in 2009, bovine aortic valve replacement in 2009. MEDICATIONS: 1. Allopurinol 100 mg p.o. daily. 2. Amlodipine/benazepril 20 one tab p.o. daily. 3. Pantoprazole 40 mg p.o. daily. 4. Clopidogrel 75 mg p.o. daily. 5. Breo 200/25 one inhalation daily. 6. Rivastigmine patch 4.5 mg transdermal daily. 7. Fluticasone nasal spray 1 spray both nares daily. 8. Ropinirole 3 mg p.o. at bedtime. 9. Lipitor 80 mg p.o. daily. 10. Senna 8.6 mg p.o. at bedtime. ALLERGIES: ALPRAZOLAM, CEFUROXIME, TETRACYCLINE, CODEINE. FAMILY HISTORY: The patient's mother and father both of heart disease. The patient has 5 siblings, who are alive and well. One sibling who of alcoholism. One sibling who of suicide. He has a sister, who has dementia. SOCIAL HISTORY: The patient quit smoking in 1979 and smoked approximately 25- pack year before that. The patient drinks alcohol occasionally. Denies illicit drug use. The patient used to work as a superintendent custodian janitor and mechanic recovery. The patient is and has 5 children. His surrogate decision maker will be his , Isabelle Holcomb. REVIEW OF SYSTEMS: A 10-point review of systems was reviewed and is negative except as above in the HPI. PHYSICAL EXAMINATION GENERAL: The patient is a 79-year-old male, who appears stated age and sitting comfortably in bed, in no acute distress. VITAL SIGNS: At the time of evaluation, temperature 98.0, pulse rate 79, respiratory rate 15, oxygen saturation 97% on 2 L, blood pressure 188/83. HEENT: Head: Normocephalic, atraumatic. Sclerae anicteric. No conjunctival injection. Nasal mucosa moist. Oral mucosa moist. No pharyngeal erythema, discharge, or exudate. NECK: Supple, nontender. No lymphadenopathy. No carotid bruits auscultated. No JVD. RESPIRATORY: Slight rales in the bilateral lower lobes. No other adventitious lung sounds. Good air exchange bilaterally. CARDIAC: Regular rate and rhythm. Grade 3/6 systolic ejection murmur heard best in the right upper sternal border. ABDOMEN: Soft, nontender, nondistended. Bowel sounds present and normoactive in all 4 quadrants. No hepatosplenomegaly. No abdominal bruits auscultated. No hepatojugular reflux. GENITOURINARY: No suprapubic or CVA tenderness. NEURO: Cranial nerves II through XII intact. No focal deficits. Alert and oriented x3. PSYCHIATRIC: Pleasant and cooperative. SKIN: Clean, dry, and intact. No rash. DIAGNOSTIC STUDIES/LAB DATA: White blood cell count 5.2, hemoglobin 12.6, platelet count 165. Sodium 141, potassium 4.3, chloride 106, carbon dioxide 32 , anion gap 3, BUN 16, creatinine 0.93, glucose 98, calcium 8.6, magnesium 1.9. Bilirubin 0.6, AST 16, ALT 19, alkaline phosphatase 85. Troponin I 0.01, BNP 201. Protein 5.7, albumin 3.5. Urine straw colored, clear, low specific gravity, otherwise unremarkable. Studies: Chest x-ray from 12/06/19 read as interstitial edema with no evidence of alveolar consolidation, mild cardiomegaly. Brain CT read as old infarct in the right frontal lobe. No intracranial mass or hemorrhage. EKG shows diffuse T-wave inversions of strain pattern, likely hypertrophy. No other significant abnormalities. ASSESSMENT AND PLAN: Mr. Holcomb is a 79-year-old male with past medical history significant for cerebrovascular accident, obstructive sleep apnea, hypertension, hyperlipidemia, and coronary artery disease, who presents to the emergency department with new-onset heart failure symptoms and hypertensive emergency, who will be admitted to the hospital for blood pressure control, diuretics, and echocardiogram. 1. Hypertensive emergency with presumed acute heart failure, unknown ejection fraction. The patient has no history of heart failure, but currently has evidence of pulmonary edema on chest x-ray, new oxygen requirement. The patient is severely hypertensive. These 2 are likely related. The patient will have diuretics. The patient's blood pressure will be controlled with increased doses of his lisinopril, continuing him on his amlodipine and addition of a nitroglycerin patch. At this time, the patient has been noncompliant with his CPAP. He will be resumed on his CPAP. The patient received hydralazine while in the hospital, but this will not be continued as it can worsen heart failure symptoms. The patient will have an echocardiogram. The patient's aortic valve replacement sounds very loud, but was recently assessed and was not abnormal per his outpatient buffer nickel, though his family does not want to go back to his buffer nickel as they do not feel that he was taking their concerns seriously. 2. Hypertension. Continue medications as above. The patient generally has good control of his blood pressure. If the patient's blood pressure is not under control, initiation of workup for secondary causes of hypertension should be considered. 3. History of cerebrovascular accident. The patient has no focal neurological deficits. CT scan of his head is normal. Continue Plavix, statin, and blood pressure control as above. 4. Restless legs syndrome. This is severe for the patient. Continue the patient's ropinirole. 5. Coronary artery disease. Continue the patient's Plavix and statin. The patient's troponins are currently 0. Trend x3. 6. Asthma. Continue the patient's Breo. The patient is not in acute exacerbation. 7. FEN: The patient will have a heart-healthy diet, caffeine okay. 8. Disposition: The patient is admitted to observation to the hospital. 9. DVT prophylaxis: Lovenox subcu. TIME SPENT: Approximately 60 minutes was spent on the admission of this patient , 30 of which was spent [id number] with the patient obtaining history and physical and discussing treatment plan. This plan was discussed with my attending, Dr. Malinda Waite, and she is in agreement. EDELMIRA MART [id number]/[facility] #: [id number] SABAS
[2019-12-06] MEDS: Nitroglycerin 0.6 MG/HR PATCH* (15 MG) TRANSDERM SCH (18:25)
[2019-12-06] MEDS: rOPINIRole TAB* 1 MG PO SCH (20:06)
[2019-12-06] MEDS: Acetaminophen TAB* 325 MG PO PRN (20:07)
[2019-12-06] MEDS ORDERED: rOPINIRole TAB* 1 MG PO SCH (21:00)
[2019-12-06] MEDS ORDERED: Ibuprofen TAB* 200 MG PO ONE (22:41)
[2019-12-07] MEDS: Acetaminophen TAB* 325 MG PO PRN ×3 (00:54→20:05)
[2019-12-07] MEDS ORDERED: traMADol TAB* 50 MG PO ONE (01:02)
[2019-12-07 06:17] LABS: ABS Basophils 0.1 10^3/ul (0-0.2); ABS Eosinophils 0.1 10^3/ul (0-0.6); ABS Lymphocytes 0.9 10^3/ul (1.0-4.8); ABS Monocytes 0.7 10^3/ul (0-0.8); ABS Neutrophils 4.3 10^3/ul (1.5-7.7); Hematocrit 35 % (42-52); Hemoglobin 11.8 g/dL (14.0-18.0); Lymphocyte % 14.7 %; Mean Corpuscular HGB Conc 34 g/dL (31-36); Mean Corpuscular Hemoglobin 32 pg (27-31); Mean Corpuscular Volume 94 fL (80-94); Mean Platelet Volume 7.4 fL (7.4-10.4); Platelet Count 172 10^3/uL (150-450); Red Blood Count 3.71 10^6 /uL (4.18-5.48); Red Cell Distribution Width 15 % (10-15)
[2019-12-07 06:41] LABS: BUN/Creatinine Ratio 21.3 (8-20); Calcium 8.6 mg/dL (8.6-10.3); EGFR African American 69.3 (>60); EGFR Non-African American 57.3 (>60); Magnesium 1.8 mg/dL (1.9-2.7); Potassium 3.5 mmol/L (3.5-5.0)
[2019-12-07] MEDS: Atorvastatin* 80 MG TAB PO SCH (09:02)
[2019-12-07] MEDS: Furosemide IV* 10 MG/ML VIAL (40 MG) IV SLOW PU SCH (09:02)
[2019-12-07] MEDS: Pantoprazole TAB * 40 MG TAB PO SCH (09:03)
[2019-12-07] MEDS: amLODIPine TAB* 5 MG PO SCH (09:03)
[2019-12-07] MEDS: Clopidogrel TAB* 75 MG PO SCH (09:03)
[2019-12-07] MEDS: Lisinopril TAB* 10 MG PO SCH (09:04)
[2019-12-07] MEDS: Nitroglycerin 0.6 MG/HR PATCH* (15 MG) TRANSDERM SCH (09:04)
[2019-12-07] MEDS: CMC:Rivastigmine CAP(NF) 1.5 MG CAP PO SCH (09:05)
[2019-12-07] MEDS ORDERED: Magnesium Sulfate 1 GM IV* 1 GM/100 ML BAG IV ONE (09:37)
[2019-12-07] MEDS ORDERED: Chlorthalidone TAB* 50 MG PO SCH (10:00)
[2019-12-07] MEDS ORDERED: Chlorthalidone TAB* 50 MG PO ONE (14:16)
[2019-12-07] MEDS: Enoxaparin(*) 40 MG/0.4 ML SYR SUBCUT SCH (14:56)
--- NOTE | 2019-12-07 15:14 | ECHO ---
*[facility]* [place] [address] Fax #: [phone] Transthoracic Echocardiogram Patient: Alistair Holcomb : 1940 Study Date: 12/07/2019 Age: 79 Gender: M HR: 63 bpm Height: 67 in /170.2 cm BSA: 2.2 m^2 Weight: 218.5 lb /99.3 kg BMI: 34.3 kg/m^2 *Human Resources Partner: * Angela Colmenares [facility] *Referring Physician: * Óscar Wilkerson *Reading Physician: * Jose Francisco Pate MD Indications: Edema. History: Coronary artery disease. Cerebrovascular accident. Risk factors: Hypertension. Dyslipidemia. Labs, prior tests, procedures, and surgery: Coronary artery bypass grafting. Aortic valve replacement with a bovine bioprosthetic valve. Conclusions Summary: - Left ventricle: Systolic function is normal. The estimated ejection fraction is 55-60%. Wall motion is normal; there are no regional wall motion abnormalities. - Right ventricle: Systolic function is normal. - Mitral valve: There is no significant regurgitation. The valve area is 2.3 cm^2. The valve area by pressure half-time is 1.7 cm^2. - Aortic valve: There is a normally functioning bioprosthetic valve. There is no evidence of stenosis. There is no significant regurgitation. The valve area by the peak velocity method is 2.00 cm^2. - Pericardium, extracardiac: There is no significant pericardial effusion. - Pulmonary arteries: Systolic pressure is at the upper limits of normal. - Study data: No prior study is available for comparison. Study data: Transthoracic echocardiogram. Procedure: Transthoracic echocardiography was performed. Image quality was fair. Complete 2D, spectral Doppler, and color flow Doppler. Location: Bedside. Patient status: Inpatient. Patient room number: 447 01. No prior study is available for comparison. Rhythm: Normal sinus rhythm. Findings Left ventricle: The cavity size is normal. Wall thickness is mildly to moderately increased. Systolic function is normal. The estimated ejection fraction is 55-60%. Wall motion is normal; there are no regional wall motion abnormalities. Doppler parameters are consistent with abnormal left ventricular relaxation (grade 1 diastolic dysfunction). Right ventricle: The cavity size is normal. Systolic function is normal. Left atrium: The atrium is mildly dilated. Right atrium: The atrium is mildly to moderately dilated. Mitral valve: The Mitral valve annulus appears moderately calcified. The leaflets are mildly thickened. There is no evidence of stenosis. There is no significant regurgitation. Aortic valve: There is a normally functioning bioprosthetic valve. There is no evidence of stenosis. There is no significant regurgitation. Tricuspid valve: The leaflets are normal thickness. There is no evidence of stenosis. There is trace regurgitation. Pulmonic valve: Not well visualized. There is no significant regurgitation. Aorta: Ascending aorta: The ascending aorta is poorly visualized. Aortic arch: The aortic arch is poorly visualized. The aortic root appears normal. Pericardium: There is no significant pericardial effusion. Pulmonary arteries: Systolic pressure is at the upper limits of normal. Systemic veins: Inferior vena cava: The vessel is dilated. There is (< 50%) respiratory change in the IVC dimension. Measurements Left ventricle Value Ref Aortic valve Value Ref DEVEN, LAX 4.8 cm 4.2 - 5.8 Brie diam, ED 2.1 cm ----- ESD, LAX 2.9 cm 2.5 - 4.0 Brie diam/bsa, ED 1.0 cm/m^2 ----- FS, LAX 39 % 25 - 43 Peak v, S 2.8 m/sec ----- PW, ED, LAX (H) 1.4 cm 0.6 - 1.0 VTI, S 51.0 cm ----- E', lat brie, TDI (L) 4.4 cm/sec >=10.0 Mean grad, S 14.0 mm Hg -- --- E/e', lat brie, 25 Peak grad, S 31.0 mm Hg ----- TDI LVOT/AV, VTI ratio 0.8 ----- E', med brie, TDI (L) 5.0 cm/sec >=7.0 KHADIJAH, VTI 2.60 cm^2 -- --- E/e', med brie, 22 KHADIJAH, Vmax 2.00 cm^2 ----- TDI E', avg, TDI 4.7 cm/sec Mitral valve Value Ref E/e', avg, TDI (H) 23 <=14 Peak E 1.1 m/sec -- --- Peak A 1.49 m/sec ----- LVOT Value Ref VTI leaflet coapt 54.5 cm ----- Diam, S 2.00 cm Decel time 364 ms ----- Area 3.1 cm^2 PHT 129 ms ----- Peak ramon, S 1.8 m/sec Mean grad, D 3.3 mm Hg ----- VTI, S 42.0 cm Peak grad, D 8.2 mm Hg ----- Peak grad, S 13 mm Hg Peak E/A ratio 0.74 ----- Mean grad, S 7 mm Hg MVA, PHT 1.7 cm^2 ----- Ventricular septum Value Ref Pulmonic valve Value Ref IVS, ED (H) 1.4 cm 0.6 - 1.0 Peak v, S 1.12 m/sec ----- Peak grad, S 5.0 mm Hg ----- Right ventricle Value Ref DEVEN, LAX 2.9 cm Tricuspid valve Value Ref DEVEN major ax, A4C (L) 3.4 cm 5.9 - 8.3 Peak grad, D 36.0 mm Hg ----- Pressure, S 39 mm Hg TR peak v (H) 3 m/sec <=2.8 Left atrium Value Ref Aortic root Value Ref AP dim, ES (H) 5.50 cm 3.00 - Root diam 3.1 cm <4.3 4.00 ML dim, A4C 4.8 cm Pulmonary artery Value Ref SI dim, A4C 6.8 cm Pressure, S 34.0 mm Hg ----- Vol/bsa, ES, 2-p 33 ml/m^2 16 - 34 Inferior vena cava Value Ref Right atrium Value Ref Diam 2.4 cm ----- SI dim, ES (H) 5.6 cm 3.4 - 5.3 ML dim, ES, A4C (H) 5.6 cm 2.6 - 4.4 Estimated RAP 3 mm Hg Legend: (L) and (H) vera values outside specified reference range. Prepared and electronically signed by Jose Francisco Pate MD 12/07/2019 15:14
[2019-12-07] MEDS ORDERED: Nitroglycerin 0.6 MG/HR PATCH* (15 MG) TRANSDERM SCH (18:00)
--- NOTE | 2019-12-07 19:16 | PN ---
Subjective Date of Service: 12/07/19 Interval History: Patient is feeling back to baseline at this point. Patient denies CP, SOB, LE edema, F/C, N/V, abdominal pain, diarrhea, dysuria, or other pain. Patient's is very concerned about his heart and valve. Family History: Unchanged from Admission Social History: Unchanged from Admission Past Medical History: Unchanged from Admission Objective Active Medications: Acetaminophen (Tylenol Tab*) 650 mg PO Q6H PRN PRN Reason: MILD PAIN or TEMP > 100.4 Last Admin: 12/07/19 09:03 Dose: 650 mg Amlodipine Besylate (Norvasc Tab*) 10 mg PO DAILY [facility] Last Admin: 12/07/19 09:03 Dose: 10 mg Atorvastatin Calcium (Lipitor*) 80 mg PO DAILY [facility] Last Admin: 12/07/19 09:02 Dose: 80 mg Chlorthalidone (Hygroton Tab*) 50 mg PO DAILY [facility] Clopidogrel Bisulfate (Plavix Tab*) 75 mg PO DAILY [facility] Last Admin: 12/07/19 09:03 Dose: 75 mg Enoxaparin Sodium (Lovenox(*)) 40 mg SUBCUT Q24H [facility] Last Admin: 12/07/19 14:56 Dose: 40 mg Lisinopril (Prinivil Tab*) 40 mg PO DAILY [facility] Last Admin: 12/07/19 09:04 Dose: 40 mg Ondansetron HCl (Zofran Inj*) 4 mg IV Q6H PRN PRN Reason: NAUSEA Pantoprazole Sodium (Protonix Tab*) 40 mg PO DAILY [facility] Last Admin: 12/07/19 09:03 Dose: 40 mg Rivastigmine Tartrate (Exelon (Nf)) 4.5 mg PO DAILY [facility] Last Admin: 12/07/19 09:05 Dose: 4.5 mg Ropinirole HCl (Requip Tab*) 3 mg PO BEDTIME [facility] Last Admin: 12/06/19 20:06 Dose: 3 mg Vital Signs - 8 hr 12/07/19 12/07/19 12/07/19 11:44 14:13 15:07 Temperature 97.2 F 97.4 F Pulse Rate 62 60 58 Respiratory 20 18 Rate Blood Pressure 162/69 169/69 166/67 (mmHg) O2 Sat by Pulse 96 96 94 Oximetry Oxygen Devices in Use Now: None Appearance: Patient is a 79yo male who appears stated age and is sitting in the bed in NAD. Eyes: No Scleral Icterus, PERRLA Ears/Nose/Mouth/Throat: NL Teeth, Lips, Gums, Clear Oropharnyx, Mucous Membranes Moist Neck: NL Appearance and Movements; NL JVP, Trachea Midline, No Thyroid Enlargement, Masses Respiratory: Symmetrical Chest Expansion and Respiratory Effort, Clear to Auscultation Cardiovascular: RRR, No Edema, - - grade 2/6 CESAR at RUSB Abdominal: NL Sounds; No Tenderness; No Distention, No Hepatosplenomegaly Lymphatic: No Cervical Adenopathy Extremities: No Edema, No Clubbing, Cyanosis Skin: No Rash or Ulcers, No Nodules or Sclerosis Neurological: Alert and Oriented x 3, NL Sensation, NL Muscle Strength and Tone , - - CN II-XII intact. Result Diagrams: 12/08/19 05:35 12/08/19 05:35 Additional Lab and Data: Lab Results 12/06/19 12/06/19 12/06/19 Range/Units 09:48 09:48 09:48 WBC 5.2 (3.5-10.8) 10^3/uL RBC 3.96 L (4.18-5.48) 10^6 /uL Hgb 12.6 L (14.0-18.0) g/dL Hct 37 L (42-52) % MCV 94 (80-94) fL MCH 32 H (27-31) pg MCHC 34 (31-36) g/dL RDW 15 (10-15) % Plt Count 165 (150-450) 10^3/uL MPV 6.9 L (7.4-10.4) fL Neut % (Auto) 70.3 % Lymph % (Auto) 14.2 % [place] % (Auto) 10.8 % Eos % (Auto) 3.5 % Baso % (Auto) 1.2 % Absolute Neuts (auto) 3.7 (1.5-7.7) 10^3/ul Absolute Lymphs (auto) 0.7 L (1.0-4.8) 10^3/ul Absolute Monos (auto) 0.6 (0-0.8) 10^3/ul Absolute Eos (auto) 0.2 (0-0.6) 10^3/ul Absolute Basos (auto) 0.1 (0-0.2) 10^3/ul Absolute Nucleated RBC 0.0 10^3/ul Nucleated RBC % 0.0 Sodium 141 (135-145) mmol/L Potassium 3.3 L (3.5-5.0) mmol/L Chloride 106 (101-111) mmol/L Carbon Dioxide 32 (22-32) mmol/L Anion Gap 3 (2-11) mmol/L BUN 16 (6-24) mg/dL Creatinine 0.93 (0.67-1.17) mg/dL Est GFR ( Amer) 94.8 (>60) Est GFR (Non-Af Amer) 78.4 (>60) BUN/Creatinine Ratio 17.2 (8-20) Glucose 98 (70-100) mg/dL Calcium 8.6 (8.6-10.3) mg/dL Magnesium 1.9 (1.9-2.7) mg/dL Total Bilirubin 0.60 (0.2-1.0) mg/dL AST 16 (13-39) U/L ALT 19 (7-52) U/L Alkaline Phosphatase 85 (34-104) U/L Troponin I 0.01 (<0.03) ng/mL B-Natriuretic Peptide 201 H (<=100) pg/mL Total Protein 5.7 L (6.4-8.9) g/dL Albumin 3.5 (3.2-5.2) g/dL Globulin 2.2 (2-4) g/dL Albumin/Globulin Ratio 1.6 (1-3) Assess/Plan/Problems-Billing Assessment: Pateint is a 79yo male PMH fro HTN, Aortic Valve Replacement, admitted with hypertensive emergency and and acute exacerbation of HFpEF. - Patient Problems (1) Hypertensive emergency Current Visit: Yes Status: Acute Code(s): I16.1 - HYPERTENSIVE EMERGENCY SNOMED Code(s): 256417678744516 Comment: - Severely Hypertensive on admission and days leading up to it with signs of acute HF - Improving, now on max Lisinopril, Amlodipine, Started on Chlorthalidone - No recurrent signs of HF. (2) Acute heart failure with normal ejection fraction Current Visit: Yes Status: Acute Code(s): I50.31 - ACUTE DIASTOLIC ( CONGESTIVE) HEART FAILURE SNOMED Code(s): 687188226 Comment: - New diagnosis, exacerbation likel related to HTN as above - EF normal with LVH, LAE, and Diastolic Dysfunction. - Initially given IV lasix, now transitioned to Chlorthalidone for better BP control - Was hypoxic, now improved. (3) MELANIE (obstructive sleep apnea) Current Visit: Yes Status: Acute Code(s): G47.33 - OBSTRUCTIVE SLEEP APNEA ( ADULT) (PEDIATRIC) SNOMED Code(s): 35720401 Comment: - Continue CPAP (4) CVA (cerebral vascular accident) Current Visit: Yes Status: Acute Code(s): I63.9 - CEREBRAL INFARCTION, UNSPECIFIED SNOMED Code(s): 989813722 Comment: - History of CVA, no residual deficits. - Continue Statin and Plavix. (5) CAD (coronary artery disease) Current Visit: Yes Status: Acute Code(s): I25.10 - ATHSCL HEART DISEASE OF [place] CORONARY ARTERY W/O ANG PCTRS SNOMED Code(s): 32672549 Comment: - Continue statin and plavix - NO current signs of ACS. (6) Asthma Current Visit: Yes Status: Acute Code(s): J45.909 - UNSPECIFIED ASTHMA, UNCOMPLICATED SNOMED Code(s): 249093439 Comment: - NOt in exacerbation, PRN home inhaler. (7) DVT prophylaxis Current Visit: Yes Status: Acute Code(s): Z29.9 - ENCOUNTER FOR PROPHYLACTIC MEASURES, UNSPECIFIED SNOMED Code(s): 965518125 (8) Full code status Current Visit: Yes Status: Acute Code(s): Z78.9 - OTHER SPECIFIED HEALTH STATUS SNOMED Code(s): 779058711 Status and Disposition: Observation, hopeful D/C tomorrow.
[2019-12-07] MEDS: rOPINIRole TAB* 1 MG PO SCH (20:04)
[2019-12-08 05:53] LABS: ABS Eosinophils 0.2 10^3/ul (0-0.6); ABS Monocytes 0.7 10^3/ul (0-0.8); Eosinophil % 3.2 %; Hematocrit 37 % (42-52); Hemoglobin 12.6 g/dL (14.0-18.0); Lymphocyte % 20.5 %; Mean Corpuscular HGB Conc 34 g/dL (31-36); Mean Corpuscular Hemoglobin 32 pg (27-31); Mean Corpuscular Volume 94 fL (80-94); Mean Platelet Volume 7.2 fL (7.4-10.4); Nucleated Red Blood Cells % 0.1; Platelet Count 173 10^3/uL (150-450); Red Blood Count 3.97 10^6 /uL (4.18-5.48); Red Cell Distribution Width 15 % (10-15); White Blood Count 4.9 10^3/uL (3.5-10.8)
[2019-12-08] MEDS ORDERED: Nitro Patch/OINT Remove PATCH OFF SCH (06:00)
[2019-12-08 06:05] LABS: Calcium 8.8 mg/dL (8.6-10.3); Potassium 3.3 mmol/L (3.5-5.0)
[2019-12-08 06:10] LABS: EGFR Non-African American 65.3 (>60)
[2019-12-08] MEDS: CMC:Rivastigmine CAP(NF) 1.5 MG CAP PO SCH (08:20)
[2019-12-08] MEDS: Atorvastatin* 80 MG TAB PO SCH (08:20)
[2019-12-08] MEDS: amLODIPine TAB* 5 MG PO SCH (08:20)
[2019-12-08] MEDS: Chlorthalidone TAB* 50 MG PO SCH (08:20)
[2019-12-08] MEDS: Potassium Chlor TAB* 20 MEQ TAB.ER PO SCH (08:20)
[2019-12-08] MEDS: Lisinopril TAB* 10 MG PO SCH (08:20)
[2019-12-08] MEDS: Pantoprazole TAB * 40 MG TAB PO SCH (08:21)
[2019-12-08] MEDS: Clopidogrel TAB* 75 MG PO SCH (08:21)
[2019-12-08] MEDS ORDERED: Furosemide TAB* 40 MG PO SCH (09:00)
[2019-12-08] MEDS: Spironolactone TAB* 25 MG PO SCH (10:28)
[2019-12-08] MEDS: Ondansetron INJ* 2 MG/ML VIAL IV PRN ×2 (11:17→17:27)
[2019-12-08] MEDS: Mometasone/Formoter 200/5 MDI INH SCH ×2 (11:31→19:50)
[2019-12-08] MEDS: Acetaminophen TAB* 325 MG PO PRN (12:29)
--- NOTE | 2019-12-08 13:01 | PN ---
Subjective Date of Service: 12/08/19 Interval History: Patient feeling well, but states he had "gas" after morning pills. Patient denies CP, SOB, Dizziness, palpitations, N/V, abdominal pain, diarrhea, F/C, or other pain. Patient vomited large volumes 2 times 2 hours after morning pills with good relief. Family History: Unchanged from Admission Social History: Unchanged from Admission Past Medical History: Unchanged from Admission Objective Active Medications: Acetaminophen (Tylenol Tab*) 650 mg PO Q6H PRN PRN Reason: MILD PAIN or TEMP > 100.4 Last Admin: 12/08/19 12:29 Dose: 650 mg Allopurinol (Zyloprim Tab*) 100 mg PO DAILY [facility] Amlodipine Besylate (Norvasc Tab*) 10 mg PO DAILY [facility] Last Admin: 12/08/19 08:20 Dose: 10 mg Atorvastatin Calcium (Lipitor*) 80 mg PO DAILY [facility] Last Admin: 12/08/19 08:20 Dose: 80 mg Chlorthalidone (Hygroton Tab*) 50 mg PO DAILY [facility] Last Admin: 12/08/19 08:20 Dose: 50 mg Clopidogrel Bisulfate (Plavix Tab*) 75 mg PO DAILY [facility] Last Admin: 12/08/19 08:21 Dose: 75 mg Enoxaparin Sodium (Lovenox(*)) 40 mg SUBCUT Q24H [facility] Last Admin: 12/07/19 14:56 Dose: 40 mg Lisinopril (Prinivil Tab*) 40 mg PO DAILY [facility] Last Admin: 12/08/19 08:20 Dose: 40 mg Mometasone Furoate/Formoterol Fumar (Dulera 200/5 Mdi*) 2 puff INH BID [facility] Last Admin: 12/08/19 11:31 Dose: 2 puff Ondansetron HCl (Zofran Inj*) 4 mg IV Q6H PRN PRN Reason: NAUSEA Last Admin: 12/08/19 11:17 Dose: 4 mg Pantoprazole Sodium (Protonix Tab*) 40 mg PO DAILY [facility] Last Admin: 12/08/19 08:21 Dose: 40 mg Potassium Chloride (Klor Con Er Tab*) 40 meq PO DAILY [facility] Last Admin: 12/08/19 08:20 Dose: 40 meq Rivastigmine Tartrate (Exelon (Nf)) 4.5 mg PO DAILY [facility] Last Admin: 12/08/19 08:20 Dose: 4.5 mg Ropinirole HCl (Requip Tab*) 3 mg PO BEDTIME [facility] Last Admin: 12/07/19 20:04 Dose: 3 mg Spironolactone (Aldactone Tab*) 25 mg PO DAILY [facility] Last Admin: 12/08/19 10:28 Dose: 25 mg Vital Signs - 8 hr 12/08/19 12/08/19 12/08/19 08:00 11:23 11:35 Temperature 97.3 F Pulse Rate 61 59 66 Respiratory 16 15 Rate Blood Pressure 155/75 158/67 (mmHg) O2 Sat by Pulse 94 91 96 Oximetry 12/08/19 12:30 Temperature 97.9 F Pulse Rate 61 Respiratory Rate Blood Pressure (mmHg) O2 Sat by Pulse 92 Oximetry Oxygen Devices in Use Now: None Appearance: Patient is a 79yo male who appears stated age and is sitting in the bed in [facility]. Eyes: No Scleral Icterus, PERRLA Ears/Nose/Mouth/Throat: NL Teeth, Lips, Gums, Clear Oropharnyx, Mucous Membranes Moist Neck: NL Appearance and Movements; NL JVP, Trachea Midline Respiratory: Symmetrical Chest Expansion and Respiratory Effort, Clear to Auscultation Cardiovascular: RRR, No Edema, - - Grade 2/6 CESAR. Abdominal: NL Sounds; No Tenderness; No Distention, No Hepatosplenomegaly Lymphatic: No Cervical Adenopathy Extremities: No Edema, No Clubbing, Cyanosis Skin: No Rash or Ulcers, No Nodules or Sclerosis Neurological: Alert and Oriented x 3, NL Sensation, NL Muscle Strength and Tone , - - CN II-XII intac.t Result Diagrams: 12/08/19 05:35 12/08/19 05:35 Additional Lab and Data: Lab Results 12/06/19 12/06/19 12/06/19 Range/Units 09:48 09:48 09:48 WBC 5.2 (3.5-10.8) 10^3/uL RBC 3.96 L (4.18-5.48) 10^6 /uL Hgb 12.6 L (14.0-18.0) g/dL Hct 37 L (42-52) % MCV 94 (80-94) fL MCH 32 H (27-31) pg MCHC 34 (31-36) g/dL RDW 15 (10-15) % Plt Count 165 (150-450) 10^3/uL MPV 6.9 L (7.4-10.4) fL Neut % (Auto) 70.3 % Lymph % (Auto) 14.2 % [place] % (Auto) 10.8 % Eos % (Auto) 3.5 % Baso % (Auto) 1.2 % Absolute Neuts (auto) 3.7 (1.5-7.7) 10^3/ul Absolute Lymphs (auto) 0.7 L (1.0-4.8) 10^3/ul Absolute Monos (auto) 0.6 (0-0.8) 10^3/ul Absolute Eos (auto) 0.2 (0-0.6) 10^3/ul Absolute Basos (auto) 0.1 (0-0.2) 10^3/ul Absolute Nucleated RBC 0.0 10^3/ul Nucleated RBC % 0.0 Sodium 141 (135-145) mmol/L Potassium 3.3 L (3.5-5.0) mmol/L Chloride 106 (101-111) mmol/L Carbon Dioxide 32 (22-32) mmol/L Anion Gap 3 (2-11) mmol/L BUN 16 (6-24) mg/dL Creatinine 0.93 (0.67-1.17) mg/dL Est GFR ( Amer) 94.8 (>60) Est GFR (Non-Af Amer) 78.4 (>60) BUN/Creatinine Ratio 17.2 (8-20) Glucose 98 (70-100) mg/dL Calcium 8.6 (8.6-10.3) mg/dL Magnesium 1.9 (1.9-2.7) mg/dL Total Bilirubin 0.60 (0.2-1.0) mg/dL AST 16 (13-39) U/L ALT 19 (7-52) U/L Alkaline Phosphatase 85 (34-104) U/L Troponin I 0.01 (<0.03) ng/mL B-Natriuretic Peptide 201 H (<=100) pg/mL Total Protein 5.7 L (6.4-8.9) g/dL Albumin 3.5 (3.2-5.2) g/dL Globulin 2.2 (2-4) g/dL Albumin/Globulin Ratio 1.6 (1-3) Assess/Plan/Problems-Billing Assessment: Christinaeinoneida is a 79yo male PMH fro HTN, Aortic Valve Replacement, admitted with hypertensive emergency and and acute exacerbation of HFpEF. - Patient Problems (1) Hypertensive emergency Current Visit: Yes Status: Acute Code(s): I16.1 - HYPERTENSIVE EMERGENCY SNOMED Code(s): 588042350866301 Comment: - Severely Hypertensive on admission and days leading up to it with signs of acute HF - Improving, now on max Lisinopril, Amlodipine, Started on Chlorthalidone and now Spironolactone - BP now only slightly hypertensive - No recurrent signs of HF. (2) Acute heart failure with normal ejection fraction Current Visit: Yes Status: Acute Code(s): I50.31 - ACUTE DIASTOLIC ( CONGESTIVE) HEART FAILURE SNOMED Code(s): 812550276 Comment: - New diagnosis, exacerbation likel related to HTN as above - EF normal with LVH, LAE, and Diastolic Dysfunction. - Initially given IV lasix, now transitioned to Chlorthalidone for better BP control - Was hypoxic, now improved. (3) MELANIE (obstructive sleep apnea) Current Visit: Yes Status: Acute Code(s): G47.33 - OBSTRUCTIVE SLEEP APNEA ( ADULT) (PEDIATRIC) SNOMED Code(s): 89007666 Comment: - Continue CPAP (4) CVA (cerebral vascular accident) Current Visit: Yes Status: Acute Code(s): I63.9 - CEREBRAL INFARCTION, UNSPECIFIED SNOMED Code(s): 822464854 Comment: - History of CVA, no residual deficits. - Continue Statin and Plavix. (5) CAD (coronary artery disease) Current Visit: Yes Status: Acute Code(s): I25.10 - ATHSCL HEART DISEASE OF [place] CORONARY ARTERY W/O ANG PCTRS SNOMED Code(s): 13737214 Comment: - Continue statin and plavix - NO current signs of ACS. (6) Asthma Current Visit: Yes Status: Acute Code(s): J45.909 - UNSPECIFIED ASTHMA, UNCOMPLICATED SNOMED Code(s): 409818938 Comment: - NOt in exacerbation, PRN home inhaler. (7) Vomiting Current Visit: Yes Status: Acute Code(s): R11.10 - VOMITING, UNSPECIFIED SNOMED Code(s): 223067699 Comment: - Vomiting after pills this AM - Unclear provocation, likely potassium supplements - Will assess again tomorrow after morning meds, as if patient is unable to take pills routinely, is at very high risk of readmission. (8) DVT prophylaxis Current Visit: Yes Status: Acute Code(s): Z29.9 - ENCOUNTER FOR PROPHYLACTIC MEASURES, UNSPECIFIED SNOMED Code(s): 137286350 (9) Full code status Current Visit: Yes Status: Acute Code(s): Z78.9 - OTHER SPECIFIED HEALTH STATUS SNOMED Code(s): 262835188 Status and Disposition: Observation, hopeful D/C tomorrow.
[2019-12-08] MEDS: Enoxaparin(*) 40 MG/0.4 ML SYR SUBCUT SCH (13:52)
[2019-12-08] MEDS: rOPINIRole TAB* 1 MG PO SCH (21:03)
[2019-12-09] MEDS: Mometasone/Formoter 200/5 MDI INH SCH ×2 (07:37→19:26)
[2019-12-09] MEDS: Lisinopril TAB* 10 MG PO SCH (09:05)
[2019-12-09] MEDS: Allopurinol TAB* 100 MG PO SCH (09:06)
[2019-12-09] MEDS: amLODIPine TAB* 5 MG PO SCH (09:06)
[2019-12-09] MEDS: Atorvastatin* 80 MG TAB PO SCH (09:06)
[2019-12-09] MEDS: Clopidogrel TAB* 75 MG PO SCH (09:06)
[2019-12-09] MEDS: Pantoprazole TAB * 40 MG TAB PO SCH (09:06)
[2019-12-09] MEDS: Chlorthalidone TAB* 50 MG PO SCH (09:06)
[2019-12-09] MEDS: Spironolactone TAB* 25 MG PO SCH (09:06)
[2019-12-09] MEDS: Potassium Chlor TAB* 20 MEQ TAB.ER PO SCH (09:06)
[2019-12-09] MEDS: CMC:Rivastigmine CAP(NF) 1.5 MG CAP PO SCH (09:06)
[2019-12-09] MEDS: Acetaminophen TAB* 325 MG PO PRN (12:28)
[2019-12-09] MEDS: Enoxaparin(*) 40 MG/0.4 ML SYR SUBCUT SCH (14:57)
--- NOTE | 2019-12-09 15:21 | PN ---
Subjective Date of Service: 12/09/19 Interval History: Mild sob.Has not ambulated yet. Reports BP well controlled at home.Still 160s this am. Was 199/105 Family History: Unchanged from Admission Social History: Unchanged from Admission Past Medical History: Unchanged from Admission Objective Active Medications: Acetaminophen (Tylenol Tab*) 650 mg PO Q6H PRN PRN Reason: MILD PAIN or TEMP > 100.4 Last Admin: 12/09/19 12:28 Dose: 650 mg Allopurinol (Zyloprim Tab*) 100 mg PO DAILY [facility] Last Admin: 12/09/19 09:06 Dose: 100 mg Amlodipine Besylate (Norvasc Tab*) 10 mg PO DAILY [facility] Last Admin: 12/09/19 09:06 Dose: 10 mg Atorvastatin Calcium (Lipitor*) 80 mg PO DAILY [facility] Last Admin: 12/09/19 09:06 Dose: 80 mg Clopidogrel Bisulfate (Plavix Tab*) 75 mg PO DAILY [facility] Last Admin: 12/09/19 09:06 Dose: 75 mg Enoxaparin Sodium (Lovenox(*)) 40 mg SUBCUT Q24H [facility] Last Admin: 12/09/19 14:57 Dose: 40 mg Furosemide (Lasix Tab*) 40 mg PO DAILY [facility] Lisinopril (Prinivil Tab*) 40 mg PO DAILY [facility] Last Admin: 12/09/19 09:05 Dose: 40 mg Metoprolol Succinate (Toprol Xl Tab*) 25 mg PO DAILY [facility] Mometasone Furoate/Formoterol Fumar (Dulera 200/5 Mdi*) 2 puff INH BID [facility] Last Admin: 12/09/19 07:37 Dose: 2 puff Ondansetron HCl (Zofran Inj*) 4 mg IV Q6H PRN PRN Reason: NAUSEA Last Admin: 12/08/19 17:27 Dose: 4 mg Pantoprazole Sodium (Protonix Tab*) 40 mg PO DAILY [facility] Last Admin: 12/09/19 09:06 Dose: 40 mg Potassium Chloride (Klor Con Er Tab*) 40 meq PO DAILY [facility] Last Admin: 12/09/19 09:06 Dose: 40 meq Rivastigmine Tartrate (Exelon (Nf)) 4.5 mg PO DAILY [facility] Last Admin: 12/09/19 09:06 Dose: 4.5 mg Ropinirole HCl (Requip Tab*) 3 mg PO BEDTIME [facility] Last Admin: 12/08/19 21:03 Dose: 3 mg Vital Signs - 8 hr 12/09/19 12/09/19 12/09/19 07:24 07:38 08:00 Temperature 97.2 F Pulse Rate 60 55 Respiratory 16 18 16 Rate Blood Pressure 162/66 (mmHg) O2 Sat by Pulse 95 95 Oximetry 12/09/19 12/09/19 10:53 12:21 Temperature 97.3 F 97.4 F Pulse Rate 59 63 Respiratory 16 20 Rate Blood Pressure 155/69 127/66 (mmHg) O2 Sat by Pulse 95 94 Oximetry Oxygen Devices in Use Now: None Eyes: No Scleral Icterus Ears/Nose/Mouth/Throat: NL Teeth, Lips, Gums Neck: NL Appearance and Movements; NL JVP Respiratory: Symmetrical Chest Expansion and Respiratory Effort Cardiovascular: NL Sounds; No Murmurs; No JVD Abdominal: NL Sounds; No Tenderness; No Distention Extremities: No Edema Neurological: Alert and Oriented x 3 Result Diagrams: 12/08/19 05:35 12/08/19 05:35 Additional Lab and Data: Lab Results 12/06/19 12/06/19 12/06/19 Range/Units 09:48 09:48 09:48 WBC 5.2 (3.5-10.8) 10^3/uL RBC 3.96 L (4.18-5.48) 10^6 /uL Hgb 12.6 L (14.0-18.0) g/dL Hct 37 L (42-52) % MCV 94 (80-94) fL MCH 32 H (27-31) pg MCHC 34 (31-36) g/dL RDW 15 (10-15) % Plt Count 165 (150-450) 10^3/uL MPV 6.9 L (7.4-10.4) fL Neut % (Auto) 70.3 % Lymph % (Auto) 14.2 % [place] % (Auto) 10.8 % Eos % (Auto) 3.5 % Baso % (Auto) 1.2 % Absolute Neuts (auto) 3.7 (1.5-7.7) 10^3/ul Absolute Lymphs (auto) 0.7 L (1.0-4.8) 10^3/ul Absolute Monos (auto) 0.6 (0-0.8) 10^3/ul Absolute Eos (auto) 0.2 (0-0.6) 10^3/ul Absolute Basos (auto) 0.1 (0-0.2) 10^3/ul Absolute Nucleated RBC 0.0 10^3/ul Nucleated RBC % 0.0 Sodium 141 (135-145) mmol/L Potassium 3.3 L (3.5-5.0) mmol/L Chloride 106 (101-111) mmol/L Carbon Dioxide 32 (22-32) mmol/L Anion Gap 3 (2-11) mmol/L BUN 16 (6-24) mg/dL Creatinine 0.93 (0.67-1.17) mg/dL Est GFR ( Amer) 94.8 (>60) Est GFR (Non-Af Amer) 78.4 (>60) BUN/Creatinine Ratio 17.2 (8-20) Glucose 98 (70-100) mg/dL Calcium 8.6 (8.6-10.3) mg/dL Magnesium 1.9 (1.9-2.7) mg/dL Total Bilirubin 0.60 (0.2-1.0) mg/dL AST 16 (13-39) U/L ALT 19 (7-52) U/L Alkaline Phosphatase 85 (34-104) U/L Troponin I 0.01 (<0.03) ng/mL B-Natriuretic Peptide 201 H (<=100) pg/mL Total Protein 5.7 L (6.4-8.9) g/dL Albumin 3.5 (3.2-5.2) g/dL Globulin 2.2 (2-4) g/dL Albumin/Globulin Ratio 1.6 (1-3) Assess/Plan/Problems-Billing Assessment: Pateint is a 79yo male PMH fro HTN, Aortic Valve Replacement, admitted with hypertensive emergency and and acute exacerbation of HFpEF. - Patient Problems (1) Acute heart failure with normal ejection fraction Current Visit: Yes Status: Acute Code(s): I50.31 - ACUTE DIASTOLIC ( CONGESTIVE) HEART FAILURE SNOMED Code(s): 712113768 Comment: - New diagnosis, exacerbation likel related to HTN as above - EF normal with LVH, LAE, and Diastolic Dysfunction. - Initially given IV lasix, then transitioned to Chlorthalidone for better BP control - Was hypoxic, now improving -Will stop Chlorthalidone -Keep on PO lasix and evaluate (2) CAD (coronary artery disease) Current Visit: Yes Status: Acute Code(s): I25.10 - ATHSCL HEART DISEASE OF [place] CORONARY ARTERY W/O ANG PCTRS SNOMED Code(s): 76754229 Comment: - Continue statin and plavix - NO current signs of ACS. (3) CVA (cerebral vascular accident) Current Visit: Yes Status: Acute Code(s): I63.9 - CEREBRAL INFARCTION, UNSPECIFIED SNOMED Code(s): 363562603 Comment: - History of CVA, no residual deficits. - Continue Statin and Plavix. (4) Hypertensive emergency Current Visit: Yes Status: Acute Code(s): I16.1 - HYPERTENSIVE EMERGENCY SNOMED Code(s): 222256524420482 Comment: - Severely Hypertensive on admission and days leading up to it with signs of acute HF - Improving, now on max Lisinopril, Amlodipine, Started on Chlorthalidone and now Spironolactone. Pt vomitted and did not tolerate all the medications yesterday. Will stop chlorthalidone and spironolactone. Will keep amlodipine and lisinopril. Add PO lasix instead for CHF symtoms and attempt a B jun Metoprolol low dose first in light of his CAD and CHF, Pulse rate on the low side so will monitor. -BP still high this am -Improving -Will pursue sec hypertension w/u with renin,aldosterone,metanephrines and renal artery duplex to r/o SANDY.Pt's BP usually well controlled at home per pt and family (5) Vomiting Current Visit: Yes Status: Acute Code(s): R11.10 - VOMITING, UNSPECIFIED SNOMED Code(s): 142051373 Comment: - Vomiting after pills this AM yesterday - Resolved Status and Disposition: PT/OT/o2 ambulation
[2019-12-09 15:47] LABS: BUN/Creatinine Ratio 21.4 (8-20); Calcium 9.9 mg/dL (8.6-10.3); EGFR African American 76.5 (>60); EGFR Non-African American 63.2 (>60)
[2019-12-09] MEDS: Furosemide TAB* 40 MG PO SCH (16:17)
[2019-12-09] MEDS: rOPINIRole TAB* 1 MG PO SCH (19:49)
[2019-12-10 04:56] LABS: ABS Eosinophils 0.1 10^3/ul (0-0.6); ABS Monocytes 0.7 10^3/ul (0-0.8); ABS Neutrophils 3.6 10^3/ul (1.5-7.7); Eosinophil % 2.7 %; Hematocrit 40 % (42-52); Hemoglobin 13.5 g/dL (14.0-18.0); Lymphocyte % 17.8 %; Mean Corpuscular HGB Conc 34 g/dL (31-36); Mean Corpuscular Hemoglobin 32 pg (27-31); Mean Corpuscular Volume 95 fL (80-94); Mean Platelet Volume 7.2 fL (7.4-10.4); Nucleated Red Blood Cells % 0.1; Platelet Count 199 10^3/uL (150-450); Red Blood Count 4.26 10^6 /uL (4.18-5.48); Red Cell Distribution Width 15 % (10-15); White Blood Count 5.5 10^3/uL (3.5-10.8)
[2019-12-10 05:15] LABS: Calcium 9.5 mg/dL (8.6-10.3); EGFR Non-African American 56.2 (>60); Potassium 3.7 mmol/L (3.5-5.0)
[2019-12-10] MEDS: Mometasone/Formoter 200/5 MDI INH SCH ×2 (07:21→19:47)
[2019-12-10] MEDS: Atorvastatin* 80 MG TAB PO SCH (09:51)
[2019-12-10] MEDS: CMC:Rivastigmine CAP(NF) 1.5 MG CAP PO SCH (09:51)
[2019-12-10] MEDS: Lisinopril TAB* 10 MG PO SCH (09:51)
[2019-12-10] MEDS: Metoprolol Succinate XL TAB* 25 MG PO SCH (09:51)
[2019-12-10] MEDS: Furosemide TAB* 40 MG PO SCH (09:52)
[2019-12-10] MEDS: Clopidogrel TAB* 75 MG PO SCH (09:52)
[2019-12-10] MEDS: Allopurinol TAB* 100 MG PO SCH (09:52)
[2019-12-10] MEDS: amLODIPine TAB* 5 MG PO SCH (09:53)
[2019-12-10] MEDS: Pantoprazole TAB * 40 MG TAB PO SCH (09:53)
[2019-12-10] MEDS ORDERED: hydrALAZINE IV* 20 MG/ML VIAL IV SLOW PU PRN (12:41)
[2019-12-10] MEDS: Enoxaparin(*) 40 MG/0.4 ML SYR SUBCUT SCH (13:11)
--- NOTE | 2019-12-10 17:19 | PN ---
Subjective Date of Service: 12/10/19 Interval History: sob improved.was going to be discharged today but bp increased again to 182/84 despite getting all his 4 BP medications. Was given IV hydralazine.Sec hypertension w/u in progress Family History: Unchanged from Admission Social History: Unchanged from Admission Past Medical History: Unchanged from Admission Objective Active Medications: Acetaminophen (Tylenol Tab*) 650 mg PO Q6H PRN PRN Reason: MILD PAIN or TEMP > 100.4 Last Admin: 12/09/19 12:28 Dose: 650 mg Allopurinol (Zyloprim Tab*) 100 mg PO DAILY [facility] Last Admin: 12/10/19 09:52 Dose: 100 mg Amlodipine Besylate (Norvasc Tab*) 10 mg PO DAILY [facility] Last Admin: 12/10/19 09:53 Dose: 10 mg Atorvastatin Calcium (Lipitor*) 80 mg PO DAILY [facility] Last Admin: 12/10/19 09:51 Dose: 80 mg Clopidogrel Bisulfate (Plavix Tab*) 75 mg PO DAILY [facility] Last Admin: 12/10/19 09:52 Dose: 75 mg Enoxaparin Sodium (Lovenox(*)) 40 mg SUBCUT Q24H [facility] Last Admin: 12/10/19 13:11 Dose: 40 mg Hydralazine HCl (Apresoline Iv*) 5 mg IV SLOW PU Q6H PRN PRN Reason: BLOOD PRESSURE Last Admin: 12/10/19 13:11 Dose: 5 mg Lisinopril (Prinivil Tab*) 40 mg PO DAILY [facility] Last Admin: 12/10/19 09:51 Dose: 40 mg Metoprolol Succinate (Toprol Xl Tab*) 25 mg PO DAILY [facility] Last Admin: 12/10/19 09:51 Dose: 25 mg Mometasone Furoate/Formoterol Fumar (Dulera 200/5 Mdi*) 2 puff INH BID [facility] Last Admin: 12/10/19 07:21 Dose: 2 puff Ondansetron HCl (Zofran Inj*) 4 mg IV Q6H PRN PRN Reason: NAUSEA Last Admin: 12/08/19 17:27 Dose: 4 mg Pantoprazole Sodium (Protonix Tab*) 40 mg PO DAILY [facility] Last Admin: 12/10/19 09:53 Dose: 40 mg Rivastigmine Tartrate (Exelon (Nf)) 4.5 mg PO DAILY [facility] Last Admin: 12/10/19 09:51 Dose: 4.5 mg Ropinirole HCl (Requip Tab*) 3 mg PO BEDTIME [facility] Last Admin: 12/09/19 19:49 Dose: 3 mg Spironolactone (Aldactone Tab*) 25 mg PO DAILY [facility] Vital Signs - 8 hr 12/10/19 12/10/19 12/10/19 11:08 14:30 15:11 Temperature 97.4 F 97.4 F Pulse Rate 65 60 Respiratory 18 12 Rate Blood Pressure 182/84 124/70 116/63 (mmHg) O2 Sat by Pulse 97 97 Oximetry Oxygen Devices in Use Now: None Eyes: No Scleral Icterus Ears/Nose/Mouth/Throat: NL Teeth, Lips, Gums Neck: NL Appearance and Movements; NL JVP Respiratory: Symmetrical Chest Expansion and Respiratory Effort, Clear to Auscultation Cardiovascular: NL Sounds; No Murmurs; No JVD Abdominal: NL Sounds; No Tenderness; No Distention Extremities: - - edema improving Neurological: Alert and Oriented x 3 Result Diagrams: 12/10/19 04:41 12/10/19 04:41 Additional Lab and Data: Lab Results 12/06/19 12/06/19 12/06/19 Range/Units 09:48 09:48 09:48 WBC 5.2 (3.5-10.8) 10^3/uL RBC 3.96 L (4.18-5.48) 10^6 /uL Hgb 12.6 L (14.0-18.0) g/dL Hct 37 L (42-52) % MCV 94 (80-94) fL MCH 32 H (27-31) pg MCHC 34 (31-36) g/dL RDW 15 (10-15) % Plt Count 165 (150-450) 10^3/uL MPV 6.9 L (7.4-10.4) fL Neut % (Auto) 70.3 % Lymph % (Auto) 14.2 % [place] % (Auto) 10.8 % Eos % (Auto) 3.5 % Baso % (Auto) 1.2 % Absolute Neuts (auto) 3.7 (1.5-7.7) 10^3/ul Absolute Lymphs (auto) 0.7 L (1.0-4.8) 10^3/ul Absolute Monos (auto) 0.6 (0-0.8) 10^3/ul Absolute Eos (auto) 0.2 (0-0.6) 10^3/ul Absolute Basos (auto) 0.1 (0-0.2) 10^3/ul Absolute Nucleated RBC 0.0 10^3/ul Nucleated RBC % 0.0 Sodium 141 (135-145) mmol/L Potassium 3.3 L (3.5-5.0) mmol/L Chloride 106 (101-111) mmol/L Carbon Dioxide 32 (22-32) mmol/L Anion Gap 3 (2-11) mmol/L BUN 16 (6-24) mg/dL Creatinine 0.93 (0.67-1.17) mg/dL Est GFR ( Amer) 94.8 (>60) Est GFR (Non-Af Amer) 78.4 (>60) BUN/Creatinine Ratio 17.2 (8-20) Glucose 98 (70-100) mg/dL Calcium 8.6 (8.6-10.3) mg/dL Magnesium 1.9 (1.9-2.7) mg/dL Total Bilirubin 0.60 (0.2-1.0) mg/dL AST 16 (13-39) U/L ALT 19 (7-52) U/L Alkaline Phosphatase 85 (34-104) U/L Troponin I 0.01 (<0.03) ng/mL B-Natriuretic Peptide 201 H (<=100) pg/mL Total Protein 5.7 L (6.4-8.9) g/dL Albumin 3.5 (3.2-5.2) g/dL Globulin 2.2 (2-4) g/dL Albumin/Globulin Ratio 1.6 (1-3) Assess/Plan/Problems-Billing Assessment: Pateint is a 79yo male PMH fro HTN, Aortic Valve Replacement, admitted with hypertensive emergency and and acute exacerbation of HFpEF. - Patient Problems (1) Acute heart failure with normal ejection fraction Current Visit: Yes Status: Acute Code(s): I50.31 - ACUTE DIASTOLIC ( CONGESTIVE) HEART FAILURE SNOMED Code(s): 505153935 Comment: - New diagnosis, exacerbation likeyl related to hypertensive urgency - EF normal with LVH, LAE, and Diastolic Dysfunction. - Initially given IV lasix, then switched to po lasix - Was hypoxic, now improving -improved (2) CAD (coronary artery disease) Current Visit: Yes Status: Acute Code(s): I25.10 - ATHSCL HEART DISEASE OF [place] CORONARY ARTERY W/O ANG PCTRS SNOMED Code(s): 09275992 Comment: - Continue statin and plavix - NO current signs of ACS. (3) CVA (cerebral vascular accident) Current Visit: Yes Status: Acute Code(s): I63.9 - CEREBRAL INFARCTION, UNSPECIFIED SNOMED Code(s): 901918213 Comment: - History of CVA, no residual deficits. - Continue Statin and Plavix. (4) Hypertensive emergency Current Visit: Yes Status: Acute Code(s): I16.1 - HYPERTENSIVE EMERGENCY SNOMED Code(s): 103464834845189 Comment: -BP on admission close to SBP 200 and in the 190s on multiple reads - Severely Hypertensive on admission and days leading up to it with signs of acute HF - Improving, now on max Lisinopril, Amlodipine, Started on Chlorthalidone and Spironolactone. Pt vomitted and did not tolerate all the medications yesterday. Stopped chlorthalidone and spironolactone. Will keep amlodipine and lisinopril. Add PO lasix instead for CHF symtoms and attempt a B jun Metoprolol low dose first in light of his CAD and CHF, Pulse rate on the low side so will monitor. -BP was in the 120s and pt was going to be discharged on this regimen but BP inc to 182/84 and pt started getting symptomatic -IV hydralazine given and on prn hydralazine -Sec hypertension w/u in progress -Hyperaldosteronism possible with inc sodium, hypokalemia and some met alkalosis. Renin nacho checked but pt already on spironolactine then and levels may not be accurate -Will also add Spironolactone back for bettwr control and attempt amlodipine, benzapril,metoprolol and spironolactone -renal artery duplex to r/o SANDY pe nding -Improving -Will pursue sec hypertension w/u with renin,aldosterone,metanephrines and renal artery duplex to r/o SANDY.Pt's BP usually well controlled at home per pt and family (5) Vomiting Current Visit: Yes Status: Acute Code(s): R11.10 - VOMITING, UNSPECIFIED SNOMED Code(s): 683930555 Comment: - Vomiting after pills this AM yesterday - Resolved Status and Disposition: PT/OT/o2 ambulation
[2019-12-10] MEDS: rOPINIRole TAB* 1 MG PO SCH (21:05)
[2019-12-11 06:26] LABS: ABS Eosinophils 0.1 10^3/ul (0-0.6); ABS Lymphocytes 1.1 10^3/ul (1.0-4.8); ABS Monocytes 1.1 10^3/ul (0-0.8); ABS Neutrophils 5.9 10^3/ul (1.5-7.7); Eosinophil % 1.7 %; Hematocrit 41 % (42-52); Hemoglobin 14.1 g/dL (14.0-18.0); Lymphocyte % 12.9 %; Mean Corpuscular HGB Conc 34 g/dL (31-36); Mean Corpuscular Hemoglobin 32 pg (27-31); Mean Corpuscular Volume 93 fL (80-94); Mean Platelet Volume 7.6 fL (7.4-10.4); Platelet Count 202 10^3/uL (150-450); Red Blood Count 4.41 10^6 /uL (4.18-5.48); Red Cell Distribution Width 15 % (10-15); White Blood Count 8.3 10^3/uL (3.5-10.8)
[2019-12-11 06:45] LABS: BUN/Creatinine Ratio 28.5 (8-20); Calcium 9.7 mg/dL (8.6-10.3); EGFR African American 64.4 (>60); EGFR Non-African American 53.3 (>60); Potassium 3.8 mmol/L (3.5-5.0)
[2019-12-11] MEDS: Mometasone/Formoter 200/5 MDI INH SCH (08:05)
[2019-12-11] MEDS: Metoprolol Succinate XL TAB* 25 MG PO SCH (08:12)
[2019-12-11] MEDS: amLODIPine TAB* 5 MG PO SCH (08:12)
[2019-12-11] MEDS: Pantoprazole TAB * 40 MG TAB PO SCH (08:13)
[2019-12-11] MEDS: Allopurinol TAB* 100 MG PO SCH (08:13)
[2019-12-11] MEDS: Lisinopril TAB* 10 MG PO SCH (08:13)
[2019-12-11] MEDS: Clopidogrel TAB* 75 MG PO SCH (08:13)
[2019-12-11] MEDS: Atorvastatin* 80 MG TAB PO SCH (08:13)
[2019-12-11] MEDS: CMC:Rivastigmine CAP(NF) 1.5 MG CAP PO SCH (08:13)
[2019-12-11] MEDS: Acetaminophen TAB* 325 MG PO PRN (08:20)
[2019-12-11] MEDS ORDERED: Spironolactone TAB* 25 MG PO SCH (09:00)
[2019-12-11] MEDS: Ondansetron INJ* 2 MG/ML VIAL IV PRN (10:18)
[2019-12-11 11:32] VITALS: BP 121/52
[2019-12-11] MEDS: Enoxaparin(*) 40 MG/0.4 ML SYR SUBCUT SCH (14:34)
--- NOTE | 2019-12-11 15:40 | DS ---
DISCHARGE SUMMARY: DATE OF ADMISSION: 11/26/19 DATE OF DISCHARGE: 12/11/19 PRIMARY DIAGNOSES: 1. Hypertensive emergency. 2. Acute exacerbation of congestive heart failure. SECONDARY DIAGNOSES: 1. Cerebrovascular accident. 2. Obstructive sleep apnea. 3. Hypertension. 4. Hyperlipidemia. 5. Gastroesophageal reflux disease. 6. Coronary artery disease. 7. Restless legs syndrome. 8. Asthma. 9. Prostate cancer, status post radiation. 10. Surgical history of coronary artery bypass grafting in 2010. 11. Bovine aortic valve replacement in 2009. HOSPITAL COURSE: 1. A 79-year-old male with past medical history of hypertension, hyperlipidemia, CVA, obstructive sl eep apnea, came into the emergency room with 4 days of worsening lower extremity edema and shortness of breath. The patient usually has not been wearing his CPAP, but was worried and started wearing it a couple of days prior to his admission. The patient's blood pressure on multiple measures was note d to be in the 180s systolic to 190s close to 200 systolic. The patient's x-ray done in the ER on also showed pulmonary edema with no evidence of pneumonia. The patient's BNP on admission was also noted to be elevated. The patient was hospitalized for hypertensive emergency with some organ damage as evidenced by acute heart failure and also some worsening in his kidney function. The patie nt received multiple doses of hydralazine and was also initially on IV Lasix and then transitioned to p.o. Lasix. The patient's blood pressure was initially difficult to control as the patient had good control and then noted to have a spike in his blood pressure. The patient was almost going to be di scharged the first day, but vomited all his medications and was dizzy and not doing well. Yesterday, the patient's blood pressure despite being on 4 blood pressure medications was still in the 180s, he nce his blood pressure regimen was adjusted through his hospital stay and the patient's current regim en appears to be working well. 2. In light of his significant hypertension and usually well controlled hypertension, the patient coulter d a secondary hypertension workup done. The patient had renal artery duplex, which did not show any renal artery stenosis. Metanephrines, aldosterone and renin levels were checked, which are currently pending. The patient to follow up results of this with his primary care doctor. The patient's hypera ldosteronism causing the patient's significant hypertension is possible as the patient's lab indicate hypokalemia, relative hypernatremia and relative metabolic alkalosis. The patient's blood pressure was difficult to control till addition of spironolactone. Unfortunately, however, the patient's nacho sterone and renin levels were checked after the patient was already on spironolactone and the numbers may not be accurate. The patient's hypokalemia was replaced with potassium and after addition of sp ironolactone with his increase in dose of his JIMMIE, the patient's hyperkalemia has resolved. 3. The patient was on diuretics in the hospital and currently somewhat over diuresed, but is not jax rt of breath and doing well. The patient's diuretics have been reduced. The patient was on Lasix IV and p.o. and also started on spironolactone. The patient's creatinine was elevated initially at 1.2 , his baseline being normal and has had some fluctuation and currently at the time of discharge is no daniela to be 1.3. 4. With respect to his hypertension and CHF management, please note #1. At time of discharge, the p en is being discharged on amlodipine and benazepril. The patient takes a lower dose at home at 1 0 mg of amlodipine and 20 mg of benazepril combination that he has taken for 10 years. As this is a familiar medication for the patient, the patient's dose of benazepril has been increased in his combi nation pill and the patient has been given a prescription to take amlodipine 10 mg, benazepril 40 mg. In addition to this, the patient has been started on spironolactone 25 mg p.o. daily and metoprolol 25 mg p.o. daily. The patient's heart rate has been in the 60s and the patient has a history of CAB G and coronary artery disease and may benefit from being on a beta-jun. I discussed this with th e patient, it appears that the patient's calender worker helper had put him on metoprolol in the past at a high er dose and had weaned them off when his heart rate was on the low side. The patient has been monito red in the hospital on metoprolol for about 48 hours now and the patient's heart rate has been consis tently maintained in the 60s. However, discussed with the patient that he would need to check his he art rate and discussed further with his primary care doctor as he may be able to tolerate the metopro lol or may need to come off. Also, the patient's spironolactone which was added in light of his poss ible hyperaldosteronism and for blood pressure management and CHF in addition to his JIMMIE inhibitors, can cause hyperkalemia and some worsening in his kidney function; however, the patient's potassium coulter s improved and is currently 3.8 at the time of discharge with both these medications. In light of th is, I discussed this with the patient and recommend checking labs next week to check his potassium an d his renal function while being on these medications. Slight bump in his creatinine is expected wit h his higher dose of JIMMIE. Vitals and labs noted to be stable at the time of discharge and the patien t's blood pressure has been consistently in the 130s on multiple reads with the above regimen. PHYSICAL EXAMINATION: Vitals: Temperature 96.5, pulse 66, respiratory rate 18, oxygen saturation 95 % on room air, blood pressure 132/60. HEENT: NCAT. Heart: S1, S2 present. Regular at the time of exam. Lungs: Clear to auscultation. Abdomen: Soft. Extremities: No edema. Neuro: Alert and chago ented x3. MEDICATION LIST: 1. Fluticasone inhaler. 2. Ellipta inhaler. 3. Allopurinol 100 mg p.o. daily. 4. Senna 1 tab p.o. at bedtime p.r.n. 5. Rivastigmine 4.5 mg p.o. daily. 6. Plavix 75 mg p.o. daily. 7. Atorvastatin 80 mg p.o. daily. 8. Ropinirole 1 mg p.o. at bedtime. 9. Pantoprazole 40 mg p.o. daily. 10. Spironolactone 25 mg p.o. daily. 11. Metoprolol/Toprol-XL 25 mg p.o. daily. 12. Amlodipine and benazepril 10/40 mg 1 cap p.o. daily. INSTRUCTIONS: 1. The patient to follow up with his PCP in a week. 2. The patient to have his basic metabolic panel checked next week to check his potassium and renal function. 3. The patient to check his blood pressure and pulse/heart rate at home. CONDITION AT THE TIME OF DISCHARGE: Stable. DISPOSITION: Home. TIME SPENT: Total time spent on discharge is equal to 50 minutes. [id number]/[facility] #: [id number]
[2019-12-12 13:20] LABS: Plasma Free Metanephrine <0.20 nmol/L (<0.50)
[2019-12-13 09:42] LABS: Renin 2.3 ng/mL/h
== END 2019-12-11 15:05 | disposition home or self-care (01) | DRG 304 ==
LOC: ED 09:05 → INTOOBSV 13:22 → MEDTELE 13:22 → OBSVTOIN 12-09 10:17
PROVIDERS: ADMIT Internal Medicine; ATTEND Internal Medicine
DX: I16.1 Hypertensive emergency (principal); I50.33 Acute on chronic diastolic (congestive) heart failure; E87.0 Hyperosmolality and hypernatremia; I16.0 Hypertensive urgency; H91.93 Unspecified hearing loss, bilateral; I11.0 Hypertensive heart disease with heart failure; G47.33 Obstructive sleep apnea (adult) (pediatric); E78.5 Hyperlipidemia, unspecified; K21.9 Gastro-esophageal reflux disease without esophagitis; I25.10 Atherosclerotic heart disease of native coronary artery without angina pectoris; J45.909 Unspecified asthma, uncomplicated; G25.81 Restless legs syndrome; E26.9 Hyperaldosteronism, unspecified; E87.6 Hypokalemia; R09.02 Hypoxemia; R11.10 Vomiting, unspecified; Z88.1 Allergy status to other antibiotic agents; Z88.5 Allergy status to narcotic agent; Z88.8 Allergy status to other drugs, medicaments and biological substances; Z97.4 Presence of external hearing-aid; Z85.46 Personal history of malignant neoplasm of prostate; Z95.2 Presence of prosthetic heart valve; Z95.1 Presence of aortocoronary bypass graft; Z91.19 Patient's noncompliance with other medical treatment and regimen; Z92.3 Personal history of irradiation; Z87.891 Personal history of nicotine dependence; Z86.73 Personal history of transient ischemic attack (TIA), and cerebral infarction without residual deficits; Z79.51 Long term (current) use of inhaled steroids; Z79.02 Long term (current) use of antithrombotics/antiplatelets; Z79.899 Other long term (current) drug therapy
CPT/HCPCS: 36415; 70450; 71046; 80048; 80053; 81003; 81015; 82088; 83735; 83835; 83880; 84244; 84484; 85025; 93005; 93306; 93975; 94640; 96374; 99284; A9270-GY; G0378; J0360; J1650; J1940; J2405; J3475